=== PATIENT | female | born 1935 | race Two or more races ===

== ENCOUNTER 2018-01-28 21:38 | Inpatient (IN) | payer MEDICARE, MEDICAID ==
[2018-01-28 22:01] LABS: % BASOPHILS 0.6 % (0.0-2.0); % EOSINOPHILS 1.2 % (0.0-5.0); % LYMPHOCYTES 21.3 % (20.0-50.0); % MONOCYTES 7.5 % (2.0-10.0); % NEUTROPHILS 69.4 % (40.0-80.0); EOSINOPHILE ABSOLUTE 0.1 Th/cmm (0.1-0.4); MEAN CELL VOLUME 88.1 fl (81-100); MEAN CORPUSCULAR HEMOGLOBIN 29.3 pg (27.0-31.0); MEAN CORPUSCULAR HGB CONC 33.3 pg (28.0-36.0); MEAN PLATELET VOLUME 6.6 fl; MONOCYTE ABSOLUTE 0.4 Th/cmm (0.3-1.0); NEUTROPHILE ABSOLUTE 3.3 Th/cmm (1.8-8.0); PLATELET COUNT 275 Th/cmm (150-400); RED BLOOD COUNT 2.38 Mil/cmm (3.80-5.20); RED CELL DISTRIBUTION WIDTH 15.1 % (11.5-20.0); WHITE BLOOD COUNT 4.8 Th/cmm (4.8-10.8)
--- NOTE | 2018-01-28 22:07 | ED Physician Chart ---
ED Chief Complaint/HPI - Patient Information Date Seen:: 01/28/18 Time Seen:: 21:55 Chief Complaint:: BLOOD IN THE STOOL History of Present Illness:: THIS IS AN 82 YO FEMALE SENT FROM A [facility] FOR AN EVALUATION OF ABDOMINAL PAIN AND BLOOD IN THE STOOL. SHE DENIES NAUSEA AND VOMITING. SHE DENIES CONSTIPATION AND DIARRHEA. SHE STATES THE PAIN IS DIFFUSE ABOUT 3/10. SHE HAS A HISTORY OF HEMORRIODS, DIVERTICULOSIS AND ANEMIA. Allergies:: Allergies Allergy/AdvReac Type Severity Reaction Status Date / Time Penicillins [PCN] Allergy Verified 01/28/18 21:48 Vitals:: Vital Signs - 8 hr 01/28/18 21:40 Temp 98.1 F HR 85 RR 18 BP 130/62 O2 Sat % 95 Historian:: Medical Records Review:: Nurse's Note Reviewed, Old Chart Reviewed, Transfer documents Reviewed ED Review of Systems - Review of Systems General/Constitutional: Other (THIS PATIENT IS CONFUSED AND NOT ABLE TO GIVE AN ACCURATE REVIEW OF SYSTEMS.) ED Past Medical History - Past Medical History Obtainable: Yes Past Medical History: HTN, DM, CAD, CVA/TIA, PUD/GERD, ESRD Family History: None Social History: Non Smoker, No Alcohol, No Drug Use, Care Facility Surgical History: other (BREAST REMOVED, TUMOR REMOVED FROM THE ABDOMEN.) Family Medical History - Family Member Mother History Unknown: Yes Ethnicity: Living Status: Father History Unknown: Yes Ethnicity: Living Status: Hx Family Coronary Artery Disease: Yes Hx Family Hypertension: Yes Hx Family Diabetes: Yes ED Physical Exam - Physical Examination General/Constitutional: Awake, Well-developed, well-nourished, Alert, No distress, GCS 15, Non-toxic appearing, Ambulatory Head: Atraumatic Eyes: Lids, conjuctiva normal, PERRL, EOMI Skin: Nl inspection, No rash, No skin lesions, No ecchymosis, Well hydrated, No lymphadenopathy ENMT: External ears, nose nl, Nasal exam nl, Lips, teeth, gums nl Neck: Nontender, Full ROM w/o pain, No JVD, No nuchal rigidity, No bruit, No mass, No stridor Respiratory: Nl effort/Exclusion, Clear to Auscultation, No Wheeze/Rhonchi/Rales Cardio Vascular: RRR, No murmur, gallop, rubs, NL S1 S2 GI: No tenderness/rebounding/guarding, No organomegaly, No hernia, Normal BS's, Nondistended, No mass/bruits, No McBurney tenderness Other GI comments:: ABDOMEN IS SOFT WITH NO REBOUND. : No CVA tenderness Extremities: No tenderness or effusion, Full ROM, normal strength in all extremities, No edema, Normal digits & nails Neuro/Psych: Alert/oriented, DTR's symmetric, Normal sensory exam, Normal motor strength, Judgement/insight normal, Mood normal, Normal gait, No focal deficits Misc: Normal back, No paraspinal tenderness ED Labs/Radiology/EKG Results - EKG Interpretations EKG Time:: 21:51 Rate & Rhythm: 79 SINUS [place]: LEFT ED Assessment - Assessment General Assessment: ANEMIA ED Septic Shock - . Is Septic Shock (SBP<90, OR Lactate>4 mmol\L) present?: No - <6hrs of presentation: Vital Signs: Vital Signs - 8 hr 01/28/ 21:40 Temp 98.1 F HR 85 RR 18 BP 130/62 O2 Sat % 95 ED Reassessment (Disposition) - Reassessment Reassessment Condition:: Unchanged - Diagnosis Diagnosis:: PSYCHOSIS - Patient Disposition Discharge/Transfer:: Acute Care w/in this hosp Admitting Medical Physician:: Kiran Rivera Admitting Psych Physician:: Juan Rushing Condition at Disposition:: Unchanged ED Discharge Plan - Patient Disposition Admit/Discharge/Transfer: Acute Care w/in this hosp Condition at Disposition: Unchanged
[2018-01-28 22:12] LABS: INR 0.97 (0.5-1.4); PROTHROMBIN TIME (TEST) 10.1 SECONDS (9.5-11.5)
[2018-01-28 22:16] LABS: ALB/GLOB RATIO 1.5 (1.0-1.8); ALBUMIN 3.5 gm/dL (3.7-5.3); ALKALINE PHOSPHATASE 31 U/L (34-104); ANION GAP 11.6 (7.0-16.0); BILIRUBIN,TOTAL 0.1 mg/dL (0.3-1.0); BUN - UREA NITROGEN 25 mg/dL (7-25); CARBON DIOXIDE 20.4 mEq/L (21.0-31.0); CHLORIDE 108 mEq/L (98-107); CREATININE - SERUM 0.9 mg/dL (0.6-1.2); GLUCOSE 147 mg/dL (70-105); SGOT 10 U/L (13-39); SGPT/ALT 11 U/L (7-52); SODIUM SERUM 136 mEq/L (136-145); TOTAL PROTEIN,SERUM 5.8 gm/dL (6.0-8.3)
--- NOTE | 2018-01-28 22:51 | ED Physician Chart ---
ED Chief Complaint/HPI - Patient Information Allergies:: Allergies Allergy/AdvReac Type Severity Reaction Status Date / Time Penicillins [PCN] Allergy Verified 01/28/18 21:48 Vitals:: Vital Signs - 8 hr 01/28/18 21:40 Temp 98.1 F HR 85 RR 18 BP 130/62 O2 Sat % 95 Family Medical History - Family Member Mother History Unknown: Yes Ethnicity: Living Status: Father History Unknown: Yes Ethnicity: Living Status: Hx Family Coronary Artery Disease: Yes Hx Family Hypertension: Yes Hx Family Diabetes: Yes ED Labs/Radiology/EKG Results - Lab Results Results: Laboratory Tests 01/28/18 01/28/18 01/28/18 20:05 21:41 21:41 WBC 4.8 RBC 2.38 L Hgb 7.0 L* Hct 21.0 L MCV 88.1 MCH 29.3 MCHC Differential 33.3 RDW 15.1 Plt Count 275 MPV 6.6 Neutrophils % 69.4 Lymphocytes % 21.3 Monocytes % 7.5 Eosinophils % 1.2 Basophils % 0.6 Sodium 136 Potassium 4.0 Chloride 108 H Carbon Dioxide 20.4 L Anion Gap 11.6 BUN 25 Creatinine 0.9 Est GFR ( Amer) TNP Est GFR (Non-Af Amer) TNP BUN/Creatinine Ratio 27.8 Glucose 147 H Calcium 10.0 Total Bilirubin 0.1 L AST 10 L ALT 11 Alkaline Phosphatase 31 L Troponin I Total Protein 5.8 L Albumin 3.5 L Globulin 2.3 Albumin/Globulin Ratio 1.5 Stool Occult Blood POSITIVE H 01/28/18 21:41 WBC RBC Hgb Hct MCV MCH MCHC Differential RDW Plt Count MPV Neutrophils % Lymphocytes % Monocytes % Eosinophils % Basophils % Sodium Potassium Chloride Carbon Dioxide Anion Gap BUN Creatinine Est GFR ( Amer) Est GFR (Non-Af Amer) BUN/Creatinine Ratio Glucose Calcium Total Bilirubin AST ALT Alkaline Phosphatase Troponin I < 0.01 L Total Protein Albumin Globulin Albumin/Globulin Ratio Stool Occult Blood ED Septic Shock - . Is Septic Shock (SBP<90, OR Lactate>4 mmol\L) present?: No - <6hrs of presentation: Vital Signs: Vital Signs - 8 hr 01/28/18 21:40 Temp 98.1 F HR 85 RR 18 BP 130/62 O2 Sat % 95 ED Reassessment (Disposition) - Patient Disposition Admitting Medical Physician:: Fredi August Condition at Disposition:: Stable ED Discharge Plan - Patient Disposition Admit/Discharge/Transfer: Acute Care w/in this hosp Condition at Disposition: Unchanged
[2018-01-28] MEDS ORDERED: Magnesium Hydroxide (MOM) 30 mL UDC PO PRN (23:31)
[2018-01-29 01:06] VITALS: BP 133/50
[2018-01-29] MEDS: Sodium Chloride 0.9% 1,000 ML IV SCH ×2 (02:07→17:38)
[2018-01-29 08:53] LABS: % EOSINOPHILS 2.6 % (0.0-5.0); % LYMPHOCYTES 26.8 % (20.0-50.0); % NEUTROPHILS 62.6 % (40.0-80.0); EOSINOPHILE ABSOLUTE 0.1 Th/cmm (0.1-0.4); LYMPHOCYTE ABSOLUTE 1.1 Th/cmm (1.5-3.0); MEAN CELL VOLUME 87.2 fl (81-100); MEAN CORPUSCULAR HEMOGLOBIN 28.5 pg (27.0-31.0); MEAN CORPUSCULAR HGB CONC 32.6 pg (28.0-36.0); MEAN PLATELET VOLUME 6.7 fl; MONOCYTE ABSOLUTE 0.3 Th/cmm (0.3-1.0); NEUTROPHILE ABSOLUTE 2.7 Th/cmm (1.8-8.0); PLATELET COUNT 242 Th/cmm (150-400); RED BLOOD COUNT 3.14 Mil/cmm (3.80-5.20); RED CELL DISTRIBUTION WIDTH 15.1 % (11.5-20.0); WHITE BLOOD COUNT 4.2 Th/cmm (4.8-10.8)
[2018-01-29 08:55] LABS: HEMATOCRIT 27.4 % (41.0-60)
[2018-01-29] MEDS ORDERED: Non-Formulary Item 1 EA (Cranberry Fruit Concentrate [Cranberry] 450 MG) PO SCH (09:00)
[2018-01-29] MEDS: Fish Oil 1,000 MG SGL PO SCH ×2 (09:06→16:13)
[2018-01-29] MEDS: Ferrous Sulfate 325 MG TAB PO SCH (09:06)
[2018-01-29] MEDS: Multivitamin Tab PO SCH (09:07)
[2018-01-29 09:09] LABS: ALB/GLOB RATIO 1.6 (1.0-1.8); ALBUMIN 3.4 gm/dL (3.7-5.3); ALKALINE PHOSPHATASE 33 U/L (34-104); ANION GAP 10.4 (7.0-16.0); BILIRUBIN,TOTAL 0.3 mg/dL (0.3-1.0); BUN - UREA NITROGEN 17 mg/dL (7-25); CALCIUM SERUM 9.2 mg/dL (8.6-10.3); CARBON DIOXIDE 19.4 mEq/L (21.0-31.0); CHLORIDE 111 mEq/L (98-107); CREATININE - SERUM 0.7 mg/dL (0.6-1.2); GLUCOSE 181 mg/dL (70-105); POTASSIUM SERUM 3.8 mEq/L (3.5-5.1); SGOT 11 U/L (13-39); SGPT/ALT 11 U/L (7-52); SODIUM SERUM 137 mEq/L (136-145); TOTAL PROTEIN,SERUM 5.6 gm/dL (6.0-8.3)
[2018-01-29] MEDS: NIFEdipine 30 mg ER Tab PO SCH ×2 (09:16→16:14)
--- NOTE | 2018-01-29 09:49 | History and Physical ---
History of Present Illness - HPI Chief Complaint: Rectal bleeding HPI: This is a patient that I follow at a SNF, I received a phone call from SNF stating that patient was having rectal bleeding, order to transfered patient to ER was done. During ER eval was found that patient had a HGB of 7, FOB was positive. 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) GI: Report: Hemorrhoids, Other (Hx of colon Ca.) Psych: Report: Anxiety Musculoskeletal: Report: No Pertinent Hx Rheumatologic: Report: No pertinent Hx Infectious Disease: Report: No Pertinent Hx Renal/: Report: No Pertinent Hx Endocrine: Report: Diabetes Dermatology: Report: No Pertinent Hx Other History: patient is blind - Past Surgical History Past Surgical History: No pertinent Hx Family Medical History - Family Member Mother History Unknown: Yes Ethnicity: Living Status: Father History Unknown: Yes Ethnicity: Living Status: Hx Family Coronary Artery Disease: Yes Hx Family Hypertension: Yes Hx Family Diabetes: Yes Social History Smoke: No Alcohol: None Drugs: None Lives: Custodial Domestic Violence: Negative - Medications Home Medications: Home Medication Medication Instructions Recorded Type Cranberry Fruit Concentrate 450 mg PO BID 12/17/14 History [Cranberry] Atorvastatin Calcium [Lipitor] 20 mg PO HS 12/18/14 History Docusate Sodium [Colace] 100 mg PO BID 05/25/16 History Famotidine [Pepcid] 20 mg PO DAILY 05/25/16 History Ferrous Sulfate [Iron] 325 mg PO DAILY 05/25/16 History Fish Oil [[place] 3] 1,000 mg PO BID 05/25/16 History Lisinopril [Zestril] 20 mg PO BID 05/25/16 History Magnesium Hydroxide [Milk of 30 ml PO DAILY PRN 05/25/16 History Magnesia] Metoprolol Tartrate [Lopressor] 25 mg PO BID 05/25/16 History Nitroglycerin [Nitroglycerin*] 0.4 mg SL Q5MIN PRN MDD 3 TABS 05/25/16 History metFORMIN [Glucophage] 850 mg PO DAILY 05/25/16 History Acetaminophen [Tylenol] 650 mg PO Q4HR PRN #0 tab 06/02/16 Rx Multivitamin [Theragran] 1 tab PO DAILY #0 tab 06/02/16 Rx Nifedipine [Nifedipine ER] 60 mg PO BID 01/28/18 History Potassium Chloride ER [Klor-Con] 10 meq PO DAILY 01/28/18 History - Allergies Allergies/Adverse Reactions: Allergies Allergy/AdvReac Type Severity Reaction Status Date / Time Penicillins [PCN] Allergy Verified 01/28/18 21:48 Review of Systems - Review of Systems Constitutional: Report: No Significant Eyes: Report: Other (Patient is blind) ENT: Report: No Significant Respiratory: Report: No Significant Cardiovascular: Report: No Significant Gastrointestinal: Report: Hematochezia Genitourinary: Report: No Significant Musculoskeletal: Report: No Significant Skin: Report: No Significant Neurological: Report: Weakness Physical Exam - Physical Exam HEENT: Report: Ears Nose Throat within normal limits, Pale Conjunctiva Cardiovascular Systems: Report: Regular, Rate and Rhythm Respiratory: Report: Breath Sounds are within normal limits Abdomen: Report: Non-tender to palpation Back: Report: Inspection of back is within normal limits. Extremities: Report: Non-tender to palpation. Skin: Report: Color of skin is within normal limits, Warm, Dry Neuro/Psych: Report: Mood affect is within normal limits - Lab Results All Lab Results last 24 hours: Laboratory Results - last 24 hr 01/29/18 01/29/18 08:47 08:47 WBC 4.2 L RBC 3.14 L Hgb 9.0 L Hct 27.4 L D MCV 87.2 MCH 28.5 MCHC Differential 32.6 RDW 15.1 Plt Count 242 MPV 6.7 Neutrophils % 62.6 Lymphocytes % 26.8 Monocytes % 7.0 Eosinophils % 2.6 Basophils % 1.0 Sodium 137 Potassium 3.8 Chloride 111 H Carbon Dioxide 19.4 L Anion Gap 10.4 BUN 17 Creatinine 0.7 Est GFR ( Amer) TNP Est GFR (Non-Af Amer) TNP BUN/Creatinine Ratio 24.3 Glucose 181 H Calcium 9.2 Total Bilirubin 0.3 AST 11 L ALT 11 Alkaline Phosphatase 33 L Total Protein 5.6 L Albumin 3.4 L Globulin 2.2 Albumin/Globulin Ratio 1.6 - Assessment Assessment: Patient is awake, alert, calm in no acute distress. Dx: Acute anemia, Rectal bleeding, Blind, HTN, DM Hemorrhoids, S/P CVA, S/P colon Ca. - Plan Plan: Patient is in IV NS, Already transfused, continue with SNF meds. Already seen by GI, Colonoscopy plan for Wednesday.
[2018-01-29 18:31] LABS: A1C % 5.6 % (4.0-6.0)
[2018-01-29] MEDS: Atorvastatin Calcium 10 MG TAB PO SCH (20:40)
--- NOTE | 2018-01-30 00:54 | Consultation ---
DATE OF CONSULTATION: 01/29/2018 CONSULTING PHYSICIAN: Dr. August. REASON FOR CONSULTATION: Rectal bleeding. HISTORY OF PRESENT ILLNESS: The patient is an 82-year-old female with past medical history significant for previous colon cancer and breast cancer, GERD, end-stage renal disease, hypertension, type 2 diabetes, previous stroke and coronary artery disease. She was admitted to the hospital with possible rectal bleeding. The patient notes that she had colon cancer in the s and had surgery at that time to remove the tumor. She does not remember the last time she had a colonoscopy after this, but thinks it was many years ago. She also had breast cancer more recently and had a breast surgery to remove this tumor and reports that she thinks she is in remission. There is report that she had right red blood per rectum yesterday and the day before, although this cannot be confirmed and the nurse today says that there is only a scant amount of possible red blood in her stool today. She does report having some abdominal pain yesterday, but feels well this morning and has no issues. She has been eating okay without vomiting or hematemesis. The patient denies any abnormal weight loss over the past month or two. PAST MEDICAL HISTORY: Hypertension, type 2 diabetes, coronary artery disease, previous stroke, GERD, end-stage renal disease, previous colon cancer, status post resection, breast cancer. PAST SURGICAL HISTORY: Colon cancer resection in the s, breast cancer surgery more recently, ex lap in 2016 for ventral hernia that was strangulated at that time. FAMILY HISTORY: Noncontributory. SOCIAL HISTORY: The patient lives at a nursing facility. Does not smoke or drink. ALLERGIES: She reports an ALLERGY TO PENICILLIN. REVIEW OF SYSTEMS: A 12-point review of systems performed. The patient is negative other than pertinent positives mentioned in the history of present illness. MEDICATIONS: Tylenol, Lipitor, Colace, Pepcid, iron, omega-3, lisinopril, milk of magnesia, metformin, metoprolol, multivitamin, nifedipine. PHYSICAL EXAMINATION: VITAL SIGNS: Blood pressure is 155/84, temperature 98.2, pulse 75 beats per minute, respiratory rate of 18. Oximetry is 97% on room air. GENERAL: The patient is lying flat in bed. She is alert and oriented x 3, no apparent distress. HEENT: Normocephalic, atraumatic appearing head. She has sunglasses on and she is legally blind. Moist mucous membranes. NECK: Supple. No JVD or thyromegaly or lymphadenopathy. CHEST: There is a scar from previous breast surgery. LUNGS: Clear to auscultation. CARDIOVASCULAR: S1, S2 are present, regular rate and rhythm. ABDOMEN: Soft. There is a midline scar. No guarding, no rebound, no distention. EXTREMITIES: No pitting edema is noted. Pulses are not present. SKIN: No obvious jaundice or cyanosis. LABORATORY DATA: White blood cell count is 4.8, hemoglobin is 7.0 on admission, this morning it is 9.0 after 2 units. Platelet count is 242. INR 0.9. Sodium 136, BUN 25, creatinine 0.9, total bilirubin 0.1, AST 10, ALT 11. Troponin is negative. Stool occult blood is positive. No abdominal imaging has been performed. IMPRESSION: This is an 82-year-old female with a history of colon cancer in the , more recently breast cancer, also who has had a strangulated ventral hernia in 2016, status post exploratory laparotomy is admitted to the hospital with possible rectal bleeding and anemia. 1. Rectal bleeding. 2. Anemia. 3. History of colon cancer in 1989, status post resection. 4. Breast cancer status post resection. 5. End-stage renal disease. 6. GERD. 7. Type 2 diabetes. 8. Coronary artery disease. 9. Previous stroke. DISCUSSION: Certainly concerning that the patient is anemic and has a stool occult positive for blood in the setting of previous colon cancer. She cannot recall her last colonoscopy, but thinks this was many years ago. Certainly this patient needs a colonoscopy now to look for any evidence of recurrence from her colon cancer. In addition, we likely will do an upper endoscopy to further investigate the anemia that she is experiencing. The patient did respond to her blood products well, thus I do not suspect an active GI bleed. In the meantime, we will send off a CEA level. RECOMMENDATIONS: 1. We will plan for EGD and colonoscopy on Wednesday in the GI lab. 2. Bowel preparation Wednesday night. 3. Trend hemoglobin and transfuse to keep above 7. 4. Send CEA level now. 5. N.p.o. after midnight, Wednesday. Thank you for allowing us to participate in this patient's care. Please call with any further questions. JOB# [id number]
[2018-01-30 05:52] LABS: % EOSINOPHILS 3.5 % (0.0-5.0); % NEUTROPHILS 56.5 % (40.0-80.0); EOSINOPHILE ABSOLUTE 0.1 Th/cmm (0.1-0.4); HEMATOCRIT 23.5 % (41.0-60); LYMPHOCYTE ABSOLUTE 1.1 Th/cmm (1.5-3.0); MEAN CELL VOLUME 87.7 fl (81-100); MEAN CORPUSCULAR HEMOGLOBIN 29.2 pg (27.0-31.0); MEAN CORPUSCULAR HGB CONC 33.3 pg (28.0-36.0); MEAN PLATELET VOLUME 7.4 fl; MONOCYTE ABSOLUTE 0.4 Th/cmm (0.3-1.0); PLATELET COUNT 230 Th/cmm (150-400); RED BLOOD COUNT 2.67 Mil/cmm (3.80-5.20); RED CELL DISTRIBUTION WIDTH 15.4 % (11.5-20.0); WHITE BLOOD COUNT 3.6 Th/cmm (4.8-10.8)
[2018-01-30 06:06] LABS: HEMOGLOBIN 7.8 gm/dL (12-16)
[2018-01-30 06:07] LABS: ALB/GLOB RATIO 1.6 (1.0-1.8); ALBUMIN 3.1 gm/dL (3.7-5.3); ALKALINE PHOSPHATASE 27 U/L (34-104); ANION GAP 9.8 (7.0-16.0); BILIRUBIN,TOTAL 0.3 mg/dL (0.3-1.0); BUN - UREA NITROGEN 13 mg/dL (7-25); CALCIUM SERUM 8.9 mg/dL (8.6-10.3); CARBON DIOXIDE 21.1 mEq/L (21.0-31.0); CHLORIDE 115 mEq/L (98-107); CREATININE - SERUM 0.7 mg/dL (0.6-1.2); POTASSIUM SERUM 3.9 mEq/L (3.5-5.1); SGOT 9 U/L (13-39); SGPT/ALT 10 U/L (7-52); SODIUM SERUM 142 mEq/L (136-145); TOTAL PROTEIN,SERUM 5.1 gm/dL (6.0-8.3)
[2018-01-30 06:09] LABS: GLUCOSE 106 mg/dL (70-105)
[2018-01-30] MEDS ORDERED: Pantoprazole 80 MG in Sodium Chloride 0.9% 100 ML IV ONE (08:02)
--- NOTE | 2018-01-30 08:25 | GI Progress Note ---
Subjective - Review of Systems Service Date: 01/30/18 Subjective: Had black stool overnight Objective - Results Result Diagrams: 01/30/18 05:05 01/30/18 05:05 Recent Labs: Laboratory Last Values WBC 3.6 Th/cmm (4.8-10.8) L 01/30/18 05:05 RBC 2.67 Mil/cmm (3.80-5.20) L 01/30/18 05:05 Hgb 7.8 gm/dL (12-16) L* 01/30/18 05:05 Hct 23.5 % (41.0-60) L 01/30/18 05:05 MCV 87.7 fl (81-100) 01/30/18 05:05 MCH 29.2 pg (27.0-31.0) 01/30/18 05:05 MCHC Differential 33.3 pg (28.0-36.0) 01/30/18 05:05 RDW 15.4 % (11.5-20.0) 01/30/18 05:05 Plt Count 230 Th/cmm (150-400) 01/30/18 05:05 MPV 7.4 fl 01/30/18 05:05 Neutrophils % 56.5 % (40.0-80.0) 01/30/18 05:05 Lymphocytes % 30.0 % (20.0-50.0) 01/30/18 05:05 Monocytes % 10.0 % (2.0-10.0) 01/30/18 05:05 Eosinophils % 3.5 % (0.0-5.0) 01/30/18 05:05 Basophils % 0.0 % (0.0-2.0) 01/30/18 05:05 PT 10.1 SECONDS (9.5-11.5) 01/28/18 21:41 INR 0.97 (0.5-1.4) 01/28/18 21:41 Sodium 142 mEq/L (136-145) 01/30/18 05:05 Potassium 3.9 mEq/L (3.5-5.1) 01/30/18 05:05 Chloride 115 mEq/L (98-107) H 01/30/18 05:05 Carbon Dioxide 21.1 mEq/L (21.0-31.0) 01/30/18 05:05 Anion Gap 9.8 (7.0-16.0) 01/30/18 05:05 BUN 13 mg/dL (7-25) 01/30/18 05:05 Creatinine 0.7 mg/dL (0.6-1.2) 01/30/18 05:05 Est GFR ( Amer) TNP 01/30/18 05:05 Est GFR (Non-Af Amer) TNP 01/30/18 05:05 BUN/Creatinine Ratio 18.6 01/30/18 05:05 Glucose 106 mg/dL (70-105) H D 01/30/18 05:05 Hemoglobin A1c % 5.6 % (4.0-6.0) 01/29/18 08:47 Calcium 8.9 mg/dL (8.6-10.3) 01/30/18 05:05 Total Bilirubin 0.3 mg/dL (0.3-1.0) 01/30/18 05:05 AST 9 U/L (13-39) L 01/30/18 05:05 ALT 10 U/L (7-52) 01/30/18 05:05 Alkaline Phosphatase 27 U/L (34-104) L 01/30/18 05:05 Troponin I < 0.01 ng/mL (0.01-0.05) L 01/28/18 21:41 Total Protein 5.1 gm/dL (6.0-8.3) L 01/30/18 05:05 Albumin 3.1 gm/dL (3.7-5.3) L 01/30/18 05:05 Globulin 2.0 gm/dL 01/30/18 05:05 Albumin/Globulin Ratio 1.6 (1.0-1.8) 01/30/18 05:05 TSH 0.74 uIU/ml (0.34-5.60) 01/28/18 21:41 Stool Occult Blood POSITIVE (NEGATIVE) H 01/28/18 20:05 Blood Type O POSITIVE 01/28/18 22:25 Antibody Screen NEGATIVE 01/28/18 22:25 Crossmatch See Detail 01/28/18 22:25 - Physical Exam Vitals and I&O: Vital Signs Temp 97 F 01/30/18 06:23 Pulse 85 01/30/18 06:23 Resp 18 01/30/18 06:23 BP 161/69 01/30/18 06:23 Pulse Ox 96 01/30/18 06:23 Intake & Output 01/29/18 01/30/18 01/30/18 18:59 06:59 18:59 Intake Total 1550 Balance 1550 Weight (lbs) 66.678 kg 78.109 kg Intake: Intake, IV Amount 1000 Sodium Chloride 0.9% 1, 1000 000 ml @ 75 mls/hr IV . [id number] [facility] Rx#:[id number] Oral 450 Other 100 Other: # Voids 3 3 # Bowel Movements 3 1 Weight Source Bedscale Bedscale Active Medications: Current Medications Acetaminophen (Tylenol) 650 mg PO Q4HR PRN PRN Reason: Pain Stop: 03/29/18 23:30 Last Admin: 01/29/18 17:48 Dose: 650 mg Atorvastatin Calcium (Lipitor) 20 mg PO HS [facility] Stop: 03/30/18 20:59 Last Admin: 01/29/18 20:40 Dose: 20 mg Docusate Sodium (Colace) 100 mg PO BID [facility] Stop: 03/30/18 08:59 Last Admin: 01/29/18 16:13 Dose: Not Given Famotidine (Pepcid) 20 mg PO DAILY [facility] Stop: 03/30/18 08:59 Last Admin: 01/29/18 09:07 Dose: 20 mg Ferrous Sulfate (Iron) 325 mg PO DAILY [facility] Stop: 03/30/18 08:59 Last Admin: 01/29/18 09:06 Dose: 325 mg Fish Oil ([place] 3) 1,000 mg PO BID [facility] Stop: 03/30/18 08:59 Last Admin: 01/29/18 16:13 Dose: 1,000 mg Sodium Chloride (Nacl 0.9%) 1,000 mls @ 75 mls/hr IV .[id number] [facility] Stop: 03/29/18 23:14 Last Admin: 01/29/18 17:38 Dose: 75 mls/hr Pantoprazole Sodium 80 mg/ (Sodium Chloride) 100 mls @ 200 mls/hr IV X1 ONE Stop: 01/30/18 08:31 Pantoprazole Sodium 80 mg/ (Sodium Chloride) 100 mls @ 10 mls/hr IV Q10H [facility] Stop: 03/31/18 08:14 Lisinopril (Zestril) 20 mg PO BID [facility] Stop: 03/30/18 08:59 Last Admin: 01/29/18 16:14 Dose: Not Given Magnesium Hydroxide (Milk Of Magnesia) 30 ml PO DAILY PRN PRN Reason: Constipation Stop: 03/29/18 23:30 Metformin HCl (Glucophage) 850 mg PO DAILY@0800 [facility] Stop: 03/30/18 07:59 Last Admin: 01/29/18 09:07 Dose: 850 mg Metoprolol Tartrate (Lopressor) 25 mg PO BID [facility] Stop: 03/30/18 08:59 Last Admin: 01/29/18 16:14 Dose: Not Given Multivitamins/Vitamin C (Theragran) 1 tab PO DAILY [facility] Stop: 03/30/18 08:59 Last Admin: 01/29/18 09:07 Dose: 1 tab Nifedipine (Procardia Xl) 60 mg PO BID [facility] Stop: 03/30/18 00:14 Last Admin: 01/29/18 16:14 Dose: 60 mg Nitroglycerin (Nitrostat) 0.4 mg SL Q5MIN PRN PRN Reason: Chest Pain Stop: 03/29/18 23:30 General: Alert, Oriented x3 HEENT: Atraumatic Cardiovascular: Regular rate Lungs: Clear to auscultation Abdomen: Bowel sounds, Soft, no Tender, no Hepatomegaly, no Rebound, no Mass, no Guarding Extremities: no Clubbing Skin: no Rash - Procedures Procedures: Procedures Procedure Code Date BLOOD TRANSFUSION SERVICE 19654 03/01/14 PACKED CELL TRANSFUSION 99.04 03/01/14 SUPPLEMENT ABDOMINAL WALL WITH SYNTH SUB, OPEN APPROACH [id number] 08/24/16 Assessment/Plan - Assessment Assessment: # History of colon ca in 1990s # HIstory of breast ca s/p mastectomy # Anemia # Melena # Hematochezia Pt originally had hematochezia, now with some melena as well. Concern is for colon ca recurrence, peptic ulcer or malignancy, diverticular bleeding, or hemorrhoidal bleeding. We will plan for EGD and colonoscopy tomorrow in the OR. Plan: - EGD and colo tomorrow. Bowel prep tonight - start PPI drip given there was melena overnight - CBC this afternoon, may need another transfusion - clears today - NPO at midnight - transfer to telemetry
[2018-01-30] MEDS: NIFEdipine 30 mg ER Tab PO SCH ×2 (08:59→16:59)
[2018-01-30] MEDS: Fish Oil 1,000 MG SGL PO SCH ×2 (08:59→16:58)
[2018-01-30] MEDS: Ferrous Sulfate 325 MG TAB PO SCH (09:00)
[2018-01-30] MEDS: Multivitamin Tab PO SCH (09:00)
[2018-01-30] MEDS: Sodium Chloride 0.9% 1,000 ML IV SCH (09:14)
[2018-01-30] MEDS: Pantoprazole 80 MG in Sodium Chloride 0.9% 100 ML IV SCH ×2 (10:43→21:22)
--- NOTE | 2018-01-30 10:56 | General Progress Note ---
Subjective - Review of Systems Service Date: 01/30/18 Subjective: I feel ok. Objective - Results Result Diagrams: 01/30/18 05:05 01/30/18 05:05 Recent Labs: Laboratory Last Values WBC 3.6 Th/cmm (4.8-10.8) L 01/30/18 05:05 RBC 2.67 Mil/cmm (3.80-5.20) L 01/30/18 05:05 Hgb 7.8 gm/dL (12-16) L* 01/30/18 05:05 Hct 23.5 % (41.0-60) L 01/30/18 05:05 MCV 87.7 fl (81-100) 01/30/18 05:05 MCH 29.2 pg (27.0-31.0) 01/30/18 05:05 MCHC Differential 33.3 pg (28.0-36.0) 01/30/18 05:05 RDW 15.4 % (11.5-20.0) 01/30/18 05:05 Plt Count 230 Th/cmm (150-400) 01/30/18 05:05 MPV 7.4 fl 01/30/18 05:05 Neutrophils % 56.5 % (40.0-80.0) 01/30/18 05:05 Lymphocytes % 30.0 % (20.0-50.0) 01/30/18 05:05 Monocytes % 10.0 % (2.0-10.0) 01/30/18 05:05 Eosinophils % 3.5 % (0.0-5.0) 01/30/18 05:05 Basophils % 0.0 % (0.0-2.0) 01/30/18 05:05 PT 10.1 SECONDS (9.5-11.5) 01/28/18 21:41 INR 0.97 (0.5-1.4) 01/28/18 21:41 Sodium 142 mEq/L (136-145) 01/30/18 05:05 Potassium 3.9 mEq/L (3.5-5.1) 01/30/18 05:05 Chloride 115 mEq/L (98-107) H 01/30/18 05:05 Carbon Dioxide 21.1 mEq/L (21.0-31.0) 01/30/18 05:05 Anion Gap 9.8 (7.0-16.0) 01/30/18 05:05 BUN 13 mg/dL (7-25) 01/30/18 05:05 Creatinine 0.7 mg/dL (0.6-1.2) 01/30/18 05:05 Est GFR ( Amer) TNP 01/30/18 05:05 Est GFR (Non-Af Amer) TNP 01/30/18 05:05 BUN/Creatinine Ratio 18.6 01/30/18 05:05 Glucose 106 mg/dL (70-105) H D 01/30/18 05:05 Hemoglobin A1c % 5.6 % (4.0-6.0) 01/29/18 08:47 Calcium 8.9 mg/dL (8.6-10.3) 01/30/18 05:05 Total Bilirubin 0.3 mg/dL (0.3-1.0) 01/30/18 05:05 AST 9 U/L (13-39) L 01/30/18 05:05 ALT 10 U/L (7-52) 01/30/18 05:05 Alkaline Phosphatase 27 U/L (34-104) L 01/30/18 05:05 Troponin I < 0.01 ng/mL (0.01-0.05) L 01/28/18 21:41 Total Protein 5.1 gm/dL (6.0-8.3) L 01/30/18 05:05 Albumin 3.1 gm/dL (3.7-5.3) L 01/30/18 05:05 Globulin 2.0 gm/dL 01/30/18 05:05 Albumin/Globulin Ratio 1.6 (1.0-1.8) 01/30/18 05:05 TSH 0.74 uIU/ml (0.34-5.60) 01/28/18 21:41 Stool Occult Blood POSITIVE (NEGATIVE) H 01/28/18 20:05 Blood Type O POSITIVE 01/28/18 22:25 Antibody Screen NEGATIVE 01/28/18 22:25 Crossmatch See Detail 01/28/18 22:25 - Physical Exam Vitals and I&O: Vital Signs Temp 97.3 F 01/30/18 10:00 Pulse 78 01/30/18 10:00 Resp 18 01/30/18 10:00 BP 173/58 01/30/18 10:00 Pulse Ox 97 01/30/18 10:00 Intake & Output 01/29/18 01/30/18 01/30/18 18:59 06:59 18:59 Intake Total 1550 1000 Balance 1550 1000 Weight (lbs) 66.678 kg 78.109 kg Intake: Intake, IV Amount 1000 1000 Sodium Chloride 0.9% 1, 1000 1000 000 ml @ 75 mls/hr IV . [id number] [facility] Rx#:[id number] Oral 450 Other 100 Other: # Voids 3 3 # Bowel Movements 3 1 Weight Source Bedscale Bedscale Active Medications: Current Medications Acetaminophen (Tylenol) 650 mg PO Q4HR PRN PRN Reason: Pain Stop: 03/29/18 23:30 Last Admin: 01/30/18 08:59 Dose: 650 mg Atorvastatin Calcium (Lipitor) 20 mg PO HS ULYSSES Stop: 03/30/18 20:59 Last Admin: 01/29/18 20:40 Dose: 20 mg Bisacodyl (Dulcolax 5 Mg Ec Tab) 10 mg PO X1 ONE Stop: 01/30/18 16:01 Docusate Sodium (Colace) 100 mg PO BID ULYSSES Stop: 03/30/18 08:59 Last Admin: 01/30/18 09:00 Dose: 100 mg Famotidine (Pepcid) 20 mg PO DAILY U[facility]SSES Stop: 03/30/18 08:59 Last Admin: 01/30/18 09:00 Dose: 20 mg Ferrous Sulfate (Iron) 325 mg PO DAILY ULYSSES Stop: 03/30/18 08:59 Last Admin: 01/30/18 09:00 Dose: 325 mg Fish Oil (Woody 3) 1,000 mg PO BID ULYSSES Stop: 03/30/18 08:59 Last Admin: 01/30/18 08:59 Dose: 1,000 mg Sodium Chloride (Nacl 0.9%) 1,000 mls @ 75 mls/hr IV .[id number] ULYSSES Stop: 03/29/18 23:14 Last Admin: 01/30/18 09:14 Dose: 75 mls/hr Pantoprazole Sodium 80 mg/ (Sodium Chloride) 100 mls @ 10 mls/hr IV Q10H ULYSSES Stop: 06/21/18 08:14 Last Admin: 01/30/18 10:43 Dose: 10 mls/hr Lisinopril (Zestril) 20 mg PO BID ULYSSES Stop: 03/30/18 08:59 Last Admin: 01/30/18 08:59 Dose: 20 mg Magnesium Hydroxide (Milk Of Magnesia) 30 ml PO DAILY PRN PRN Reason: Constipation Stop: 03/29/18 23:30 Metformin HCl (Glucophage) 850 mg PO DAILY@0800 U[facility]SSES Stop: 03/30/18 07:59 Last Admin: 01/30/18 09:00 Dose: 850 mg Metoprolol Tartrate (Lopressor) 25 mg PO BID ULYSSES Stop: 03/30/18 08:59 Last Admin: 01/30/18 08:59 Dose: 25 mg Multivitamins/Vitamin C (Theragran) 1 tab PO DAILY ULYSSES Stop: 03/30/18 08:59 Last Admin: 01/30/18 09:00 Dose: 1 tab Nifedipine (Procardia Xl) 60 mg PO BID ULYSSES Stop: 03/30/18 00:14 Last Admin: 01/30/18 08:59 Dose: 60 mg Nitroglycerin (Nitrostat) 0.4 mg SL Q5MIN PRN PRN Reason: Chest Pain Stop: 03/29/18 23:30 Polyethylene Glycol/Electrolytes (Golytely) 4,000 ml PO X1 ONE Stop: 01/30/18 15:01 General: Alert, Oriented x3 HEENT: Atraumatic Cardiovascular: Regular rate Lungs: Clear to auscultation Abdomen: Bowel sounds, Soft, no Tender, no Rebound, no Mass, no Guarding Extremities: Other (No edema), no Clubbing Neurological: Other (Unstable gait) Skin: Other (Warm and dry), no Rash Psych/Mental Status: Mental status NL - Procedures Procedures: Procedures Procedure Code Date BLOOD TRANSFUSION SERVICE 38396 03/01/14 PACKED CELL TRANSFUSION 99.04 03/01/14 SUPPLEMENT ABDOMINAL WALL WITH SYNTH SUB, OPEN APPROACH [id number] 08/24/16 Assessment/Plan - Assessment Assessment: Patient is awake, alert, calm in no acute distress. Last vazquez she had black bowel movement. Dx: Acute anemia, Rectal bleeding, Blind, HTN, DM Hemorrhoids, S /P CVA, S/P colon Ca. - Plan Plan: Patient is in IV NS, Already continue with SNF meds. Tomorrow colonoscopy will be done. Will continue to monitor. .
[2018-01-30 16:17] LABS: % BASOPHILS 0.4 % (0.0-2.0); % EOSINOPHILS 2.6 % (0.0-5.0); % LYMPHOCYTES 24.7 % (20.0-50.0); % MONOCYTES 8.5 % (2.0-10.0); % NEUTROPHILS 63.8 % (40.0-80.0); EOSINOPHILE ABSOLUTE 0.1 Th/cmm (0.1-0.4); HEMATOCRIT 25.3 % (41.0-60); HEMOGLOBIN 8.4 gm/dL (12-16); LYMPHOCYTE ABSOLUTE 1.3 Th/cmm (1.5-3.0); MEAN CELL VOLUME 87.7 fl (81-100); MEAN CORPUSCULAR HEMOGLOBIN 29.2 pg (27.0-31.0); MEAN CORPUSCULAR HGB CONC 33.3 pg (28.0-36.0); MEAN PLATELET VOLUME 6.9 fl; MONOCYTE ABSOLUTE 0.4 Th/cmm (0.3-1.0); NEUTROPHILE ABSOLUTE 3.4 Th/cmm (1.8-8.0); PLATELET COUNT 251 Th/cmm (150-400); RED BLOOD COUNT 2.88 Mil/cmm (3.80-5.20); RED CELL DISTRIBUTION WIDTH 14.9 % (11.5-20.0)
[2018-01-30 16:20] LABS: WHITE BLOOD COUNT 5.2 Th/cmm (4.8-10.8)
[2018-01-30] MEDS: Atorvastatin Calcium 10 MG TAB PO SCH (21:22)
[2018-01-31] MEDS: Sodium Chloride 0.9% 1,000 ML IV SCH ×2 (02:18→19:05)
[2018-01-31 05:10] LABS: % BASOPHILS 0.7 % (0.0-2.0); % EOSINOPHILS 1.8 % (0.0-5.0); EOSINOPHILE ABSOLUTE 0.1 Th/cmm (0.1-0.4); MONOCYTE ABSOLUTE 0.4 Th/cmm (0.3-1.0); PLATELET COUNT 239 Th/cmm (150-400)
[2018-01-31 05:21] LABS: INR 0.95 (0.5-1.4); PROTHROMBIN TIME (TEST) 9.9 SECONDS (9.5-11.5)
[2018-01-31 05:23] LABS: % LYMPHOCYTES 19.4 % (20.0-50.0); % MONOCYTES 7.8 % (2.0-10.0); % NEUTROPHILS 70.3 % (40.0-80.0); HEMATOCRIT 22.6 % (41.0-60); MEAN CELL VOLUME 87.3 fl (81-100); MEAN CORPUSCULAR HEMOGLOBIN 29.1 pg (27.0-31.0); MEAN CORPUSCULAR HGB CONC 33.4 pg (28.0-36.0); MEAN PLATELET VOLUME 7.4 fl; NEUTROPHILE ABSOLUTE 3.5 Th/cmm (1.8-8.0); RED CELL DISTRIBUTION WIDTH 15.1 % (11.5-20.0)
[2018-01-31 05:32] LABS: ALB/GLOB RATIO 1.6 (1.0-1.8); ALBUMIN 3.3 gm/dL (3.7-5.3); ALKALINE PHOSPHATASE 29 U/L (34-104); BILIRUBIN,TOTAL 0.3 mg/dL (0.3-1.0); BUN - UREA NITROGEN 8 mg/dL (7-25); CALCIUM SERUM 8.9 mg/dL (8.6-10.3); CARBON DIOXIDE 20.5 mEq/L (21.0-31.0); CHLORIDE 113 mEq/L (98-107); CREATININE - SERUM 0.7 mg/dL (0.6-1.2); GLUCOSE 109 mg/dL (70-105); POTASSIUM SERUM 3.5 mEq/L (3.5-5.1); SGOT 12 U/L (13-39); SGPT/ALT 10 U/L (7-52); SODIUM SERUM 143 mEq/L (136-145); TOTAL PROTEIN,SERUM 5.4 gm/dL (6.0-8.3)
[2018-01-31 05:57] LABS: HEMOGLOBIN 7.6 gm/dL (12-16)
--- NOTE | 2018-01-31 08:26 | General Progress Note ---
Subjective - Review of Systems Service Date: 01/31/18 Subjective: I am ready for colonoscopy. Objective - Results Result Diagrams: 01/31/18 04:30 01/31/18 04:30 Recent Labs: Laboratory Last Values WBC 5.0 Th/cmm (4.8-10.8) 01/31/18 04:30 RBC 2.60 Mil/cmm (3.80-5.20) L 01/31/18 04:30 Hgb 7.6 gm/dL (12-16) L* 01/31/18 04:30 Hct 22.6 % (41.0-60) L 01/31/18 04:30 MCV 87.3 fl (81-100) 01/31/18 04:30 MCH 29.1 pg (27.0-31.0) 01/31/18 04:30 MCHC Differential 33.4 pg (28.0-36.0) 01/31/18 04:30 RDW 15.1 % (11.5-20.0) 01/31/18 04:30 Plt Count 239 Th/cmm (150-400) 01/31/18 04:30 MPV 7.4 fl 01/31/18 04:30 Neutrophils % 70.3 % (40.0-80.0) 01/31/18 04:30 Lymphocytes % 19.4 % (20.0-50.0) L 01/31/18 04:30 Monocytes % 7.8 % (2.0-10.0) 01/31/18 04:30 Eosinophils % 1.8 % (0.0-5.0) 01/31/18 04:30 Basophils % 0.7 % (0.0-2.0) 01/31/18 04:30 PT 9.9 SECONDS (9.5-11.5) 01/31/18 04:30 INR 0.95 (0.5-1.4) 01/31/18 04:30 Sodium 143 mEq/L (136-145) 01/31/18 04:30 Potassium 3.5 mEq/L (3.5-5.1) 01/31/18 04:30 Chloride 113 mEq/L (98-107) H 01/31/18 04:30 Carbon Dioxide 20.5 mEq/L (21.0-31.0) L 01/31/18 04:30 Anion Gap 13.0 (7.0-16.0) 01/31/18 04:30 BUN 8 mg/dL (7-25) 01/31/18 04:30 Creatinine 0.7 mg/dL (0.6-1.2) 01/31/18 04:30 Est GFR ( Amer) TNP 01/31/18 04:30 Est GFR (Non-Af Amer) TNP 01/31/18 04:30 BUN/Creatinine Ratio 11.4 01/31/18 04:30 Glucose 109 mg/dL (70-105) H 01/31/18 04:30 Hemoglobin A1c % 5.6 % (4.0-6.0) 01/29/18 08:47 Calcium 8.9 mg/dL (8.6-10.3) 01/31/18 04:30 Total Bilirubin 0.3 mg/dL (0.3-1.0) 01/31/18 04:30 AST 12 U/L (13-39) L 01/31/18 04:30 ALT 10 U/L (7-52) 01/31/18 04:30 Alkaline Phosphatase 29 U/L (34-104) L 01/31/18 04:30 Troponin I < 0.01 ng/mL (0.01-0.05) L 01/28/18 21:41 Total Protein 5.4 gm/dL (6.0-8.3) L 01/31/18 04:30 Albumin 3.3 gm/dL (3.7-5.3) L 01/31/18 04:30 Globulin 2.1 gm/dL 01/31/18 04:30 Albumin/Globulin Ratio 1.6 (1.0-1.8) 01/31/18 04:30 TSH 0.74 uIU/ml (0.34-5.60) 01/28/18 21:41 Stool Occult Blood POSITIVE (NEGATIVE) H 01/28/18 20:05 Blood Type O POSITIVE 01/28/18 22:25 Antibody Screen NEGATIVE 01/28/18 22:25 Crossmatch See Detail 01/28/18 22:25 - Physical Exam Vitals and I&O: Vital Signs Temp 97.6 F 01/31/18 04:00 Pulse 73 01/31/18 04:00 Resp 18 01/31/18 04:00 BP 146/56 01/31/18 04:00 Pulse Ox 95 01/31/18 04:00 Intake & Output 01/30/18 01/31/18 01/31/18 18:59 06:59 18:59 Intake Total 3600 1100 Balance 3600 1100 Weight (lbs) 78.018 kg 67.721 kg Intake: Intake, IV Amount 100 1100 Pantoprazole 80 mg In 100 Sodium Chloride 0.9% 100 ml @ 10 mls/hr IV Q10H [facility] Rx#:[id number] Sodium Chloride 0.9% 1, 1000 000 ml @ 75 mls/hr IV . [id number] [facility] Rx#:[id number] Oral 3500 Other: # Voids 3 4 # Bowel Movements 7 7 Weight Source Bedscale Bedscale Active Medications: Current Medications Acetaminophen (Tylenol) 650 mg PO Q4HR PRN PRN Reason: Pain Stop: 03/29/18 23:30 Last Admin: 01/30/18 08:59 Dose: 650 mg Atorvastatin Calcium (Lipitor) 20 mg PO HS ULYSSES Stop: 03/30/18 20:59 Last Admin: 01/30/18 21:22 Dose: 20 mg Docusate Sodium (Colace) 100 mg PO BID ULYSSES Stop: 03/30/18 08:59 Last Admin: 01/30/18 17:00 Dose: Not Given Famotidine (Pepcid) 20 mg PO DAILY ULYSSES Stop: 03/30/18 08:59 Last Admin: 01/30/18 09:00 Dose: 20 mg Ferrous Sulfate (Iron) 325 mg PO DAILY ULYSSES Stop: 03/30/18 08:59 Last Admin: 01/30/18 09:00 Dose: 325 mg Fish Oil (Cleghorn 3) 1,000 mg PO BID ULYSSES Stop: 03/30/18 08:59 Last Admin: 01/30/18 16:58 Dose: 1,000 mg Sodium Chloride (Nacl 0.9%) 1,000 mls @ 75 mls/hr IV .[id number] [facility] Stop: 03/29/18 23:14 Last Admin: 01/31/18 02:18 Dose: 75 mls/hr Pantoprazole Sodium 80 mg/ (Sodium Chloride) 100 mls @ 10 mls/hr IV Q10H [facility]SSES Stop: 03/31/18 08:14 Last Admin: 01/30/18 21:22 Dose: 10 mls/hr Insulin Aspart (Novolog Insulin Sliding Scale) 0 units SUBQ ACHS ULYSSES PRN Reason: Protocol Stop: 04/01/18 07:29 Lisinopril (Zestril) 20 mg PO BID [facility] Stop: 03/30/18 08:59 Last Admin: 01/30/18 16:58 Dose: 20 mg Magnesium Hydroxide (Milk Of Magnesia) 30 ml PO DAILY PRN PRN Reason: Constipation Stop: 03/29/18 23:30 Metformin HCl (Glucophage) 850 mg PO DAILY@0800 [facility] Stop: 03/30/18 07:59 Last Admin: 01/30/18 09:00 Dose: 850 mg Metoprolol Tartrate (Lopressor) 25 mg PO BID [facility] Stop: 03/30/18 08:59 Last Admin: 01/30/18 17:00 Dose: 25 mg Multivitamins/Vitamin C (Theragran) 1 tab PO DAILY [facility] Stop: 03/30/18 08:59 Last Admin: 01/30/18 09:00 Dose: 1 tab Nifedipine (Procardia Xl) 60 mg PO BID [facility] Stop: 03/30/18 00:14 Last Admin: 01/30/18 16:59 Dose: 60 mg Nitroglycerin (Nitrostat) 0.4 mg SL Q5MIN PRN PRN Reason: Chest Pain Stop: 03/29/18 23:30 General: Alert, Oriented x3 HEENT: Atraumatic Cardiovascular: Regular rate Lungs: Clear to auscultation Abdomen: Bowel sounds, Soft, no Tender, no Rebound, no Mass, no Guarding Extremities: Other (No edema), no Clubbing Neurological: Other (Unstable gait) Skin: Other (Warm and dry), no Rash Psych/Mental Status: Mental status NL - Procedures Procedures: Procedures Procedure Code Date BLOOD TRANSFUSION SERVICE 88037 03/01/14 PACKED CELL TRANSFUSION 99.04 03/01/14 SUPPLEMENT ABDOMINAL WALL WITH SYNTH SUB, OPEN APPROACH [id number] 08/24/16 Assessment/Plan - Assessment Assessment: Patient is awake, alert, calm in no acute distress. Hgb wentfrom 8.4 to 7.6 in one day. Dx: Acute anemia, Rectal bleeding, Blind, HTN, DM Hemorrhoids, S/P CVA , S/P colon Ca. - Plan Plan: Patient is in IV NS, Already continue with SNF meds. One unit of RBC is ordered. Today colonoscopy will be done. Will continue to monitor. .
[2018-01-31] MEDS: INSULIN ASPART SLIDING SCALE 100 UNITS/ML UNIT SUBQ SCH ×4 (08:36→20:03)
[2018-01-31] MEDS: NIFEdipine 30 mg ER Tab PO SCH (09:39)
[2018-01-31] MEDS: Ferrous Sulfate 325 MG TAB PO SCH (09:41)
[2018-01-31] MEDS: Fish Oil 1,000 MG SGL PO SCH ×2 (09:41→18:22)
[2018-01-31] MEDS: Multivitamin Tab PO SCH (09:42)
[2018-01-31] MEDS: Pantoprazole 80 MG in Sodium Chloride 0.9% 100 ML IV SCH ×2 (09:48→23:34)
[2018-01-31] MEDS ORDERED: Diatrizoate Meglumine/Diatri 30 mL Sol PO ONE (12:18)
--- NOTE | 2018-01-31 14:25 | Diagnostic Imaging Report ---
Small bowel follow-through HISTORY: Gastrointestinal bleeding The initial luminary animal stunner radiograph demonstrates a nonspecific gas pattern of nondilated bowel. Surgical clips noted in the right upper quadrant consistent with a prior cholecystectomy. Additional surgical clips project over the right abdomen. Surgical changes noted in the lumbar spine associated with a subtle scoliosis and severe degenerative changes. Water-soluble contrast was administered orally. There is free flow contrast from the stomach into the small bowel. There is a normal small bowel caliber and mucosal fold pattern. Normal transit time to the colon. No definite focal abnormalities. No evidence of any extrinsic masses. IMPRESSION: Negative small bowel examination
--- NOTE | 2018-01-31 15:04 | Operative Report ---
DATE OF SURGERY: 01/31/2018 PROCEDURE: 1. Esophagogastroduodenoscopy with biopsy. 2. Colonoscopy. PREOPERATIVE DIAGNOSES: Anemia and GI bleeding in the setting of a history of colon cancer. POSTPROCEDURE DIAGNOSES: 1. Upper endoscopy showing mild reflux esophagitis, status post biopsy; small to moderate size hiatal hernia; mild antral gastritis, status post biopsy and CLOtest; normal duodenum, status post biopsies to rule out celiac disease. 2. Colonoscopy showing intact ileocolonic anastomosis in the transverse colon; diverticulosis; hemorrhoids. INDICATIONS: An 82-year-old female with history of colon cancer resected in the past, now presenting with anemia and GI bleeding. CONSENT: Informed consent was obtained from the patient and her family prior to procedure after detailed explanation of risks, benefits, alternatives including but not limited to infection, bleeding, perforation and . SEDATION: Monitored anesthesia care per Dr. Yanez. DESCRIPTION OF PROCEDURE AND FINDINGS: The procedure took place as an inpatient in the GI suite of [facility]. PROCEDURE: The patient was kept in a left lateral decubitus position. Adequate sedation was achieved with above medications. Initially, an upper endoscopy was performed followed by colonoscopy. An Olympus diagnostic upper endoscope was advanced via the patient's mouth and into the esophagus. The esophagus distally contained some mild reflux esophagitis change. The Z-line was noted at about 35 cm from the gums. Biopsies were obtained from the distal esophagus to rule out short segment Michelle's esophagus. Retroflexion in the stomach revealed a small to moderate sized hiatal hernia. The diaphragmatic hiatus was at about 39 cm from the gums. No GE junction masses or varices were identified on retroflex view in the stomach. Mild antral gastritis was identified. Biopsies were obtained from antrum and mid body submitted for CLOtest as well as histopathology. The pyloric channel and duodenum up to second portion appeared normal. Random biopsies were obtained from second portion to rule out celiac disease. The scope was then withdrawn from the patient. The patient was then repositioned and colonoscopy performed. Rectal examination revealed normal sphincter tone with no rectal masses. An Olympus pediatric colonoscope was advanced via the patient's anus and into the rectum with ease. It was advanced up to the mid transverse colon where an intact ileocolonic anastomosis was identified. The ileum was intubated about 10 cm beyond the anastomosis and appeared normal. The approximate scope withdrawal time from anastomosis to rectum was about 6-7 minutes. There was [id number] left-sided diverticulosis without obvious diverticulitis. Retroflexion in the rectum revealed small internal hemorrhoids. There was no active bleeding or old blood identified in the colon. No stigmata of recent hemorrhage was identified. No polyps or mass lesions were identified. There was no evidence of recurrent cancer. The patient tolerated the procedure well and no complications are anticipated. RECOMMENDATIONS: 1. Follow up biopsy results. 2. Diet as tolerated. 3. Check small bowel series to rule out small bowel lesion. 4. May need outpatient capsule endoscopy to rule out small bowel bleeding. 5. Disposition as per hospitalist. Thank you, Dr. Fredi August for involving us in the care of your patient. If you have any further questions, please call us. JOB# [id number] [email or web address]
[2018-01-31] MEDS: Atorvastatin Calcium 10 MG TAB PO SCH (20:03)
[2018-02-01 05:17] LABS: % BASOPHILS 1.1 % (0.0-2.0); % LYMPHOCYTES 11.8 % (20.0-50.0); % MONOCYTES 7.1 % (2.0-10.0); BASOPHILE ABSOLUTE 0.1 Th/cumm (0-0.2); EOSINOPHILE ABSOLUTE 0.1 Th/cmm (0.1-0.4); HEMOGLOBIN 8.6 gm/dL (12-16); LYMPHOCYTE ABSOLUTE 0.8 Th/cmm (1.5-3.0); MEAN CELL VOLUME 88.6 fl (81-100); MEAN CORPUSCULAR HEMOGLOBIN 29.1 pg (27.0-31.0); MEAN CORPUSCULAR HGB CONC 32.9 pg (28.0-36.0); MONOCYTE ABSOLUTE 0.5 Th/cmm (0.3-1.0); NEUTROPHILE ABSOLUTE 5.4 Th/cmm (1.8-8.0); PLATELET COUNT 246 Th/cmm (150-400); RED BLOOD COUNT 2.94 Mil/cmm (3.80-5.20); RED CELL DISTRIBUTION WIDTH 14.4 % (11.5-20.0); WHITE BLOOD COUNT 6.9 Th/cmm (4.8-10.8)
[2018-02-01 05:31] LABS: ANION GAP 10.1 (7.0-16.0); BUN - UREA NITROGEN 8 mg/dL (7-25); CALCIUM SERUM 8.9 mg/dL (8.6-10.3); CARBON DIOXIDE 22.3 mEq/L (21.0-31.0); CHLORIDE 113 mEq/L (98-107); CREATININE - SERUM 0.7 mg/dL (0.6-1.2); GLUCOSE 115 mg/dL (70-105); POTASSIUM SERUM 3.4 mEq/L (3.5-5.1); SODIUM SERUM 142 mEq/L (136-145)
[2018-02-01] MEDS: INSULIN ASPART SLIDING SCALE 100 UNITS/ML UNIT SUBQ SCH (06:31)
[2018-02-01] MEDS: Multivitamin Tab PO SCH (08:34)
[2018-02-01] MEDS: NIFEdipine 30 mg ER Tab PO SCH (08:34)
[2018-02-01] MEDS: Fish Oil 1,000 MG SGL PO SCH (08:34)
[2018-02-01] MEDS: Ferrous Sulfate 325 MG TAB PO SCH (08:34)
--- NOTE | 2018-02-01 08:53 | Discharge Summary ---
General Discharge Summary - Discharge Summary Date of Admission: 01/28/18 Admitting Diagnosis: Rectal bleeding, Acute anemia Discharge Date: 02/01/18 Discharge Diagnosis: Rectal bleeding, Acute anemia, DM, CHF, CAD, HTN, Hemorroids, Deverticulosis, Hx of colon Ca. Laboratory Findings: Laboratory Results - last 24 hr 01/29/18 01/31/18 01/31/18 08:47 12:14 18:11 WBC RBC Hgb Hct MCV MCH MCHC Differential RDW Plt Count MPV Neutrophils % Lymphocytes % Monocytes % Eosinophils % Basophils % Sodium Potassium Chloride Carbon Dioxide Anion Gap BUN Creatinine Est GFR ( Amer) Est GFR (Non-Af Amer) BUN/Creatinine Ratio Glucose POC Glucose 107 H 153 H Calcium Carcinoembryonic Ag 2.4 01/31/18 02/01/18 02/01/18 19:45 04:50 04:50 WBC 6.9 RBC 2.94 L Hgb 8.6 L Hct 26.0 L MCV 88.6 MCH 29.1 MCHC Differential 32.9 RDW 14.4 Plt Count 246 MPV 7.0 Neutrophils % 78.0 Lymphocytes % 11.8 L Monocytes % 7.1 Eosinophils % 2.0 Basophils % 1.1 Sodium 142 Potassium 3.4 L Chloride 113 H Carbon Dioxide 22.3 Anion Gap 10.1 BUN 8 Creatinine 0.7 Est GFR ( Amer) TNP Est GFR (Non-Af Amer) TNP BUN/Creatinine Ratio 11.4 Glucose 115 H POC Glucose 194 H Calcium 8.9 Carcinoembryonic Ag 02/01/18 06:13 WBC RBC Hgb Hct MCV MCH MCHC Differential RDW Plt Count MPV Neutrophils % Lymphocytes % Monocytes % Eosinophils % Basophils % Sodium Potassium Chloride Carbon Dioxide Anion Gap BUN Creatinine Est GFR ( Amer) Est GFR (Non-Af Amer) BUN/Creatinine Ratio Glucose POC Glucose 110 H Calcium Carcinoembryonic Ag Hospital Course: Patient responded to treatment, Upper and lower endoscopy were done, she improved. Treatment: Patient was in IV NS, Protonix IV, Insulin sliding scale, Continue with SNF meds , 2 units of RBC were transfused. Upper and lower endoscopy were done. Condition at Discharge: Stable Disposition: [facility] (Not SNF) Home Medications: Home Medication Medication Instructions Recorded Type Cranberry Fruit Concentrate 450 mg PO BID 03/09/15 History [Cranberry] Atorvastatin Calcium [Lipitor] 20 mg PO HS 12/18/14 History Docusate Sodium [Colace] 100 mg PO BID 05/25/16 History Famotidine [Pepcid] 20 mg PO DAILY 05/25/16 History Ferrous Sulfate [Iron] 325 mg PO DAILY 05/25/16 History Fish Oil [Hope 3] 1,000 mg PO BID 05/25/16 History Lisinopril [Zestril] 20 mg PO BID 05/25/16 History Magnesium Hydroxide [Milk of 30 ml PO DAILY PRN 05/25/16 History Magnesia] Metoprolol Tartrate [Lopressor] 25 mg PO BID 05/25/16 History Nitroglycerin [Nitroglycerin*] 0.4 mg SL Q5MIN PRN MDD 3 TABS 05/25/16 History metFORMIN [Glucophage] 850 mg PO DAILY 05/25/16 History Acetaminophen [Tylenol] 650 mg PO Q4HR PRN #0 tab 06/02/16 Rx Multivitamin [Theragran] 1 tab PO DAILY #0 tab 06/02/16 Rx Nifedipine [Nifedipine ER] 60 mg PO BID 01/28/18 History Potassium Chloride ER [Klor-Con] 10 meq PO DAILY 01/28/18 History Inpatient Medications: Current Medications Acetaminophen (Tylenol) 650 mg PO Q4HR PRN PRN Reason: Pain Stop: 03/29/18 23:30 Last Admin: 02/01/18 05:02 Dose: 650 mg Atorvastatin Calcium (Lipitor) 20 mg PO HS ULYSSES Stop: 03/30/18 20:59 Last Admin: 01/31/18 20:03 Dose: 20 mg Docusate Sodium (Colace) 100 mg PO BID [facility]SS[facility] Stop: 03/30/18 08:59 Last Admin: 02/01/18 08:34 Dose: 100 mg Famotidine (Pepcid) 20 mg PO DAILY [facility]SS[facility] Stop: 03/30/18 08:59 Last Admin: 02/01/18 08:34 Dose: 20 mg Ferrous Sulfate (Iron) 325 mg PO DAILY U[facility]SS[facility] Stop: 03/30/18 08:59 Last Admin: 02/01/18 08:34 Dose: 325 mg Fish Oil (Hope 3) 1,000 mg PO BID U[facility]SSES Stop: 03/30/18 08:59 Last Admin: 02/01/18 08:34 Dose: 1,000 mg Sodium Chloride (Nacl 0.9%) 1,000 mls @ 75 mls/hr IV .[id number] [facility] Stop: 03/29/18 23:14 Last Admin: 01/31/18 19:05 Dose: 75 mls/hr Pantoprazole Sodium 80 mg/ (Sodium Chloride) 100 mls @ 10 mls/hr IV Q10H [facility] Stop: 03/31/18 08:14 Last Admin: 01/31/18 23:34 Dose: 10 mls/hr Insulin Aspart (Novolog Insulin Sliding Scale) 0 units SUBQ ACHS ULYSSES PRN Reason: Protocol Stop: 04/01/18 07:29 Last Admin: 02/01/18 06:31 Dose: Not Given Lisinopril (Zestril) 20 mg PO BID [facility] Stop: 03/30/18 08:59 Last Admin: 02/01/18 08:36 Dose: 20 mg Magnesium Hydroxide (Milk Of Magnesia) 30 ml PO DAILY PRN PRN Reason: Constipation Stop: 03/29/18 23:30 Metformin HCl (Glucophage) 850 mg PO DAILY@0800 [facility] Stop: 03/30/18 07:59 Last Admin: 02/01/18 08:00 Dose: 850 mg Metoprolol Tartrate (Lopressor) 25 mg PO BID [facility] Stop: 03/30/18 08:59 Last Admin: 02/01/18 08:36 Dose: 25 mg Multivitamins/Vitamin C (Theragran) 1 tab PO DAILY [facility] Stop: 03/30/18 08:59 Last Admin: 02/01/18 08:34 Dose: 1 tab Nifedipine (Procardia Xl) 60 mg PO BID [facility] Stop: 03/30/18 00:14 Last Admin: 02/01/18 08:34 Dose: 60 mg Nitroglycerin (Nitrostat) 0.4 mg SL Q5MIN PRN PRN Reason: Chest Pain Stop: 03/29/18 23:30 Activity: As Tolerated Discharge Diet: 2 Gram Sodium Consults and Follow-Up: Fredi August [Primary Care Provider] - Consulting Speciality: GI
[2018-02-01] MEDS ORDERED: Propofol 10 mg/mL 20mL Vial **SURGERY USE ONLY IV ONE (10:25)
[2018-02-01] MEDS ORDERED: Lidocaine 2% Gel 5 mL TP ONE (10:25)
--- NOTE | 2018-02-01 13:49 | Pathology Report ---
[id number] Collection date: 01/31/2018 Surgeon: Dr. Dusty Cast Specimen Description: 1. Duodenum biopsy 2. Antrum biopsy 3. Esophageal biopsy Gross Description: Part I: Received in formalin are two victoria soft tissue fragments ranging from 0.1 to 0.2 cm in greatest dimension. Totally submitted in one cassette labeled A. Gross Description: Part II: Received in formalin are two victoria soft tissue fragments ranging from 0.1 to 0.2 cm in greatest dimension. Totally submitted in one cassette labeled B. Gross Description: Part III: Received in formalin are two victoria soft tissue fragments each measuring 0.1 cm in greatest dimension. Totally submitted in one cassette labeled C. Microscopic Description: Part I: The histologic sections show duodena mucosa with intact intestinal villi, showing no evidence for villous abnormality. Diagnosis: Part I: No evidence for celiac disease/sprue (duodenal biopsy). Microscopic Description: Part II: The histologic sections show gastric mucosa with mild chronic inflammation present consisting of lymphocytes and plasma cells. The Giemsa stain shows no evidence for Helicobacter pylori. Diagnosis: Part II: 1. Mild chronic gastritis, antrum biopsy. 2. The Giemsa stain is negative for Helicobacter pylori. Microscopic Description: Part III: The histologic sections show benign glandular and squamous mucosa consistent with esophageal-gastric mucosa. There is mild chronic inflammation present consisting of lymphocytes and plasma cells. The PAS stain shows no evidence for fungal organisms. The Alcian blue stain shows no evidence for intestinal metaplasia (negative for Michelle's). Diagnosis: Part III: 1. Mild chronic inflammation consistent with chronic esophago-gastritis (distal esophageal biopsy). 2. There is no evidence for Michelle's esophagus. [facility]# [id number] [facility]
== END 2018-02-01 11:55 | DRG 377 ==
LOC: ER 21:38 → MSI 22:50 → TELE 01-30 08:07
PROVIDERS: ADMIT General Practice; ATTEND General Practice
PROC: 30233N1 Transfusion of Nonautologous Red Blood Cells into Peripheral Vein, Percutaneous Approach (ICD-10-PCS; 2018-01-28)
PROC: 0DB58ZX Excision of Esophagus, Via Natural or Artificial Opening Endoscopic, Diagnostic (ICD-10-PCS; principal; 2018-01-31)
PROC: 0DB68ZX Excision of Stomach, Via Natural or Artificial Opening Endoscopic, Diagnostic (ICD-10-PCS; 2018-01-31)
PROC: 0DJD8ZZ Inspection of Lower Intestinal Tract, Via Natural or Artificial Opening Endoscopic (ICD-10-PCS; 2018-01-31)
PROC: 0DB98ZX Excision of Duodenum, Via Natural or Artificial Opening Endoscopic, Diagnostic (ICD-10-PCS; 2018-01-31)
DX: K62.5 Hemorrhage of anus and rectum (principal); N18.6 End stage renal disease; I13.2 Hypertensive heart and chronic kidney disease with heart failure and with stage 5 chronic kidney disease, or end stage renal disease; E11.22 Type 2 diabetes mellitus with diabetic chronic kidney disease; K21.0 Gastro-esophageal reflux disease with esophagitis; K44.9 Diaphragmatic hernia without obstruction or gangrene; K29.70 Gastritis, unspecified, without bleeding; K57.30 Diverticulosis of large intestine without perforation or abscess without bleeding; I50.9 Heart failure, unspecified; K64.8 Other hemorrhoids; D64.9 Anemia, unspecified; F41.9 Anxiety disorder, unspecified; I25.10 Atherosclerotic heart disease of native coronary artery without angina pectoris; H54.7 Unspecified visual loss; Z85.038 Personal history of other malignant neoplasm of large intestine; Z86.73 Personal history of transient ischemic attack (TIA), and cerebral infarction without residual deficits; Z90.10 Acquired absence of unspecified breast and nipple; Z88.0 Allergy status to penicillin; Z82.49 Family history of ischemic heart disease and other diseases of the circulatory system; Z83.3 Family history of diabetes mellitus; Z90.49 Acquired absence of other specified parts of digestive tract
CPT/HCPCS: 36415-UA; 74250-TC; 80048-TC; 80053-TC; 82270-TC; 82378-90; 82948-90; 83036-90; 84443-TC; 84484-TC; 85025-TC; 85610-TC; 86850-TC; 86900-TC; 86901-TC; 86922-TC; 87338-TC; 93005; C9113; J1815; J2704; J7030; J7040; P9016; Z7610

== ENCOUNTER 2018-10-10 18:40 | Inpatient (IN) | payer MEDICARE, MEDICAID ==
[2018-10-10] MEDS ORDERED: Sodium Chloride 0.9% 1,000 ML IV ONE (21:06)
--- NOTE | 2018-10-10 21:12 | ED Physician Chart ---
ED Chief Complaint/HPI - Patient Information Date Seen:: 10/10/18 Time Seen:: 21:00 Chief Complaint:: cough fever History of Present Illness:: location: general quality: cough, fever severity: moderate duration; 2 weeks context: SNF pt reports cold symptoms for few days then cough for about 2 weeks. also reports fever. says she feels sick overall. no vomiting, no diarrhea, no rash. no seizure, no syncope. no chest pain or shortness of breath. Dr. Navarro decided to send pt to ER for further evaluation clinical suspicion for pneumonia. medics report pt with stable vital signs. mod factor: none assoc s/s: none hx from pt. and EMS Allergies:: Allergies Allergy/AdvReac Type Severity Reaction Status Date / Time Penicillins [PCN] Allergy Verified 01/28/18 21:48 Historian:: Patient, EMS Review:: Nurse's Note Reviewed, EMS run form Reviewed ED Review of Systems - Review of Systems General/Constitutional: Fever, No chills, No weight loss, No weakness, No diaphoresis, No edema, No loss of appetite Skin: No skin lesions, No rash, No bruising Head: No headache, No light-headedness Eyes: No loss of vision, No pain, No diplopia ENT: Nasal drainage, No tinnitus Neck: No neck pain, No thyromegaly, No mass noted Cardio Vascular: No chest pain, No palpitations, No edema Pulmonary: No SOB, Cough, Sputum, No wheezing GI: No nausea, No vomiting, No diarrhea, No pain, No melena, No hematochezia, No constipation, No hematemesis G/U: No dysuria, No frequency, No hematuria Musculoskeletal: No bone or joint pain, No back pain, No muscle pain Endocrine: Polyuria Psychiatric: No prior psych history, No depression, No anxiety, No suicidal ideation Hematopoietic: No bruising, No lymphadenopathy Allergic/Immuno: No urticaria, No angioedema Neurological: No syncope, No focal symptoms, No weakness, No paresthesia, No headache, No seizure, No dizziness, No confusion, No vertigo ED Past Medical History - Past Medical History Past Medical History: HTN, DM, Dyslipidemia Family History: Diabetes Mel[place] Social History: Non Smoker, No Alcohol, No Drug Use, , Care Facility Surgical History: None Psychiatricy History: None Medication: Reviewed Family Medical History - Family Member Mother History Unknown: Yes Ethnicity: Living Status: Father History Unknown: Yes Ethnicity: Living Status: Hx Family Coronary Artery Disease: Yes Hx Family Hypertension: Yes Hx Family Diabetes: Yes ED Physical Exam - Physical Examination General/Constitutional: Awake, Well-developed, well-nourished, Alert, No distress, GCS 15, Non-toxic appearing, Ambulatory Head: Atraumatic Eyes: Lids, conjuctiva normal, PERRL, EOMI Skin: Nl inspection, No skin lesions, Well hydrated ENMT: External ears, nose nl, Nasal exam nl (nasal congestion), Oropharynx nl Neck: Nontender, No nuchal rigidity Respiratory: Nl effort/Exclusion (rales and rhonchi right middle and lower lobes , left side clear - good overall thoracic expansion) Cardio Vascular: RRR, No murmur, gallop, rubs, NL S1 S2 GI: No tenderness/rebounding/guarding, Normal BS's, Nondistended : No CVA tenderness Extremities: No tenderness or effusion, Full ROM, normal strength in all extremities, No edema, Normal digits & nails Neuro/Psych: Alert/oriented, Normal sensory exam, Normal motor strength, Judgement/insight normal, Mood normal, No focal deficits Misc: Normal back, No paraspinal tenderness ED Labs/Radiology/EKG Results - Lab Results Results: Laboratory Tests 10/10/18 10/10/18 10/10/18 20:10 20:10 20:10 WBC 9.9 RBC 4.10 Hgb 12.3 Hct 38.2 L MCV 93.0 MCH 29.9 MCHC Differential 32.2 RDW 12.0 Plt Count 289 MPV 7.5 Neutrophils % 80.7 H Lymphocytes % 9.9 L Monocytes % 8.9 Eosinophils % 0.3 Basophils % 0.2 Sodium 135 L Potassium 3.7 Chloride 103 Carbon Dioxide 21.0 Anion Gap 14.7 BUN 22 Creatinine 1.0 Est GFR ( Amer) TNP Est GFR (Non-Af Amer) TNP BUN/Creatinine Ratio 22.0 Glucose 156 H Whole Bld Lactic Acid 0.94 Calcium 11.3 H Total Bilirubin 0.9 AST 19 ALT 20 Alkaline Phosphatase 34 Total Protein 7.4 Albumin 4.1 Globulin 3.3 Albumin/Globulin Ratio 1.2 Urine Source Urine Color Urine Clarity Urine pH Ur Specific [place] Urine Protein Urine Glucose (UA) Urine Ketones Urine Blood Urine Nitrate Urine Bilirubin Urine Urobilinogen Ur Leukocyte Esterase Urine RBC Urine WBC Ur Epithelial Cells Urine Bacteria 10/10/18 21:33 WBC RBC Hgb Hct MCV MCH MCHC Differential RDW Plt Count MPV Neutrophils % Lymphocytes % Monocytes % Eosinophils % Basophils % Sodium Potassium Chloride Carbon Dioxide Anion Gap BUN Creatinine Est GFR ( Amer) Est GFR (Non-Af Amer) BUN/Creatinine Ratio Glucose Whole Bld Lactic Acid Calcium Total Bilirubin AST ALT Alkaline Phosphatase Total Protein Albumin Globulin Albumin/Globulin Ratio Urine Source CLEAN C Urine Color YELLOW Urine Clarity CLOUDY H Urine pH 5.5 Ur Specific [place] >= 1.030 Urine Protein 100 H Urine Glucose (UA) NEGATIVE Urine Ketones TRACE Urine Blood NEGATIVE Urine Nitrate POSITIVE H Urine Bilirubin SMALL H Urine Urobilinogen 2.0 Ur Leukocyte Esterase TRACE H Urine RBC 0-2 Urine WBC 6-10 H Ur Epithelial Cells FEW Urine Bacteria 4+ H - Radiology Results Results: CXR prominence of right and left side central bronchi subtle patchiness right middle lobe abnormal CXR suspect pneumonia right side ER READ will advise admisssion - EKG Interpretations Comments:: EKG sinus tachycardia 103 LVH with secondary repolarization abnormality 0ld anterior infarct slightly leftward axis no acute ST elevation no acute ST depression pt with no chest pain, pt with cough abnormal EKG ER READ ED Assessment - Assessment General Assessment: pt stable while in ER ED Septic Shock - . Is Septic Shock (SBP<90, OR Lactate>4 mmol\L) present?: No - <6hrs of presentation: Assessment of Heart: RRR EKG Interpretation: NSR Capillary refill evaluation: Capillary refill < 2 secs Skin Exam: Warm, Dry, Good Turgur ED Reassessment (Disposition) - Reassessment Reassessment:: medical decision making pt with stable vital signs on arrival to ER however physical exam is positive for significant right middle and lower lobe rales and rhonchi suspect pneumonia blood cultures are performed pt case discussed with Dr. Navarro who advises order influenza A/B Reassessment Condition:: Improved - Diagnosis Diagnosis:: right sided facility acquired pneumonia and/or viral infection urinary tract infection - Patient Disposition Discharge/Transfer:: Acute Care w/in this hosp Admitted to:: Med/Surg Admitting Medical Physician:: Federico Navarro Condition at Disposition:: Stable, Improved
[2018-10-10 21:17] LABS: % BASOPHILS 0.2 % (0.0-2.0); % EOSINOPHILS 0.3 % (0.0-5.0); % LYMPHOCYTES 9.9 % (20.0-50.0); % MONOCYTES 8.9 % (2.0-10.0); % NEUTROPHILS 80.7 % (40.0-80.0); HEMATOCRIT 38.2 % (41.0-60); HEMOGLOBIN 12.3 gm/dL (12-16); MEAN CORPUSCULAR HEMOGLOBIN 29.9 pg (27.0-31.0); MEAN CORPUSCULAR HGB CONC 32.2 pg (28.0-36.0); MEAN PLATELET VOLUME 7.5 fl; MONOCYTE ABSOLUTE 0.9 Th/cmm (0.3-1.0); PLATELET COUNT 289 Th/cmm (150-400); WHITE BLOOD COUNT 9.9 Th/cmm (4.8-10.8)
[2018-10-10 21:30] LABS: ALB/GLOB RATIO 1.2 (1.0-1.8); ALBUMIN 4.1 gm/dL (3.7-5.3); ALKALINE PHOSPHATASE 34 U/L (34-104); ANION GAP 14.7 (7.0-16.0); BILIRUBIN,TOTAL 0.9 mg/dL (0.3-1.0); BUN - UREA NITROGEN 22 mg/dL (7-25); CALCIUM SERUM 11.3 mg/dL (8.6-10.3); CHLORIDE 103 mEq/L (98-107); GLUCOSE 156 mg/dL (70-105); POTASSIUM SERUM 3.7 mEq/L (3.5-5.1); SGOT 19 U/L (13-39); SGPT/ALT 20 U/L (7-52); SODIUM SERUM 135 mEq/L (136-145); TOTAL PROTEIN,SERUM 7.4 gm/dL (6.0-8.3)
[2018-10-10 21:58] LABS: URINE SOURCE CLEAN C
[2018-10-10 22:00] LABS: URINE BILIRUBIN SMALL (NEGATIVE); URINE BLOOD NEGATIVE (NEGATIVE); URINE COLOR YELLOW; URINE GLUCOSE (UA) NEGATIVE (NEGATIVE); URINE KETONE TRACE mg/dL (NEGATIVE); URINE LEUKOCYTE ESTERASE TRACE (NEGATIVE); URINE MICROSCOPIC INDICATED? YES; URINE NITRATE POSITIVE (NEGATIVE); URINE PH 5.5 (4.6 - 8.0); URINE PROTEIN 100 mg/dL (NEGATIVE)
[2018-10-10 22:01] LABS: URINE CLARITY CLOUDY (CLEAR)
[2018-10-10 22:03] LABS: URINE BACTERIA 4+ /hpf (NONE SEEN); URINE EPITHELIAL CELLS FEW /lpf (FEW); URINE RBC 0-2 /hpf (0-5)
[2018-10-10] MEDS ORDERED: Levofloxacin 500mg/100mL 500 MG/100 ML BAG IV ONE (22:49)
[2018-10-11 00:48] LABS: INF A SCREEN NEG FOR INF A; INF B SCREEN NEG FOR INF B
[2018-10-11] MEDS ORDERED: Levofloxacin 500mg/100mL 500 MG/100 ML BAG IV ONE (01:33)
[2018-10-11 03:48] VITALS: BP 136/66
[2018-10-11] MEDS: cefTRIAXone 1 GM in Sodium Chloride 0.9% 50 ML IV SCH (05:25)
[2018-10-11] MEDS: Azithromycin 500 MG in Sodium Chloride 0.9% 250 ML IV SCH (05:26)
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
[2018-10-11] MEDS ORDERED: Magnesium Hydroxide (MOM) 30 mL UDC PO PRN (11:34)
[2018-10-11] MEDS: Fenofibrate, Micronized 134 mg Cap PO SCH (13:43)
[2018-10-11] MEDS: Potassium Chloride 10 mEq ER Tab PO SCH (13:44)
[2018-10-11] MEDS ORDERED: VTE Chemical Prophylaxis Screen/Admission MC PRN (14:13)
--- NOTE | 2018-10-11 14:21 | History & Physical ---
ADMIT DATE: 10/11/2018 MEDICAL H AND P PATIENT'S IDENTIFICATION: An 82-year-old female. CHIEF COMPLAINT: Persistent cough, congestion and fever for last 2 days. HISTORY OF PRESENT ILLNESS: An 82-year-old resident of [facility] has been followed by myself and my nurse practitioner, brought into Emergency Room from [facility] for evaluation of cough, congestion and sore throat evaluation. The patient was worked up in the Emergency Room, noted to have urinary tract infection along with chest x-ray consistent with right lower lobe infiltrate. The patient is now being admitted to the hospital for further treatment. PAST MEDICAL HISTORY: Remarkable for: 1. Diabetes. 2. Hypertension. 3. Hyperlipidemia. 4. DJD. 5. Coronary artery disease. 6. Legally blindness. MEDICATIONS AT HOME: The patient is taking multiple medications, which includes Colace, Pepcid, fenofibrate, Lipitor, lisinopril, Glucophage, Lopressor, multivitamin, potassium. ALLERGIES: THE PATIENT IS ALLERGIC TO PENICILLIN. SOCIAL HISTORY: She resides at a [facility]. No smoking cigarette, alcohol, or drug use. FAMILY HISTORY: Remarkable for diabetes. REVIEW OF SYSTEMS: The patient has complained of sore throat, cough, congestion, bring up green-yellow sputum. The patient denies any chest pain, no shortness of breath. Has fever and chills. Denies any abdominal pain. Denies any nausea, vomiting, diarrhea. Does have some dysuria, but no hematuria, hematochezia, melena. No seizure or syncopal episode. PHYSICAL EXAMINATION: GENERAL: Alert, awake, lying in the bed. VITAL SIGNS: Temperature 99.3, pulse 115, respiratory rate 19, blood pressure 161/71. HEENT: Normocephalic, atraumatic. Bilateral legally blindness noted. Tongue was pink and coated. Oropharynx is congested. Nasal mucosa congested. NECK: Supple, no JVD, no hepatojugular reflex. No lymphadenopathy, thyromegaly. HEART: Both heart sounds are regular. CHEST AND LUNGS: Equal in expansion with mild expiratory wheezing. ABDOMEN: Soft. No guarding, no rigidity. Liver and spleen palpable. No palpable mass. EXTREMITIES: No edema, no cyanosis. Peripheral pulses are +2. No calf tenderness noted. NEUROLOGIC: Alert, awake, follows commands. Decreased power throughout the upper and lower extremity noted. AVAILABLE DIAGNOSTIC DATA: Performed in the Emergency Room, white count of 9.9, hemoglobin 12.3, platelet count 289. Sodium 135, potassium 3.7, chloride 103, CO2 21.0, anion gap is 14.7, BUN and creatinine is 22 and 1.0, glucose of 156, calcium 11.3. Urinalysis remarkable for nitrite positive, bilirubin small, urobilinogen 2+, leuk esterase trace, wbc's 6-10, 4+ bacteria, cloudy urine. Influenza A and B were negative. Chest x-ray read by Emergency Room MD right lower lobe infiltrate. A chest x-ray read by my interpretation, cardiomegaly, questionable haziness of the right lower lobe area noted. CLINICAL IMPRESSION: 1. Persistent cough, congestion, fever. Influenza A and B negative. The patient has diabetes, immunocompromised, extremely high risk to have sepsis. Considering the patient resides in a [facility] and being immunocompromised, the patient may have a component of right lower lobe pneumonia, needs better visualization of the lung. 2. Diabetes. 3. Hypertension. 4. Hyperlipidemia. 5. Degenerative joint disease. 6. Coronary artery disease. 7. Dementia. 8. Debility. 9. Legally blindness. PLAN: The patient is admitted by me overnight. We will get CT scan of the chest. Sputum Gram stain, C and S will be requested. IV Rocephin and Zithromax will be continued per treatment for community-acquired pneumonia and urinary tract infection as well. The patient is to have appropriate home medicine reconciliation. Diabetes will be managed. Follow up lab will be done. We will have further recommendation once CT chest reveals significant finding. Care plan has been reviewed and discussed with RN and the patient. JOB# [id number]
[2018-10-11] MEDS ORDERED: Probiotic Screen MC PRN (15:34)
[2018-10-11] MEDS: Lactobacillus Rhamnosus GG 15 Billion CFU CAP.SPRINK PO SCH (16:39)
[2018-10-11] MEDS: NIFEdipine 30 mg ER Tab PO SCH (16:42)
[2018-10-11] MEDS ORDERED: Non-Formulary Item 1 EA (Cranberry Fruit Concentrate [Cranberry] 450 MG) PO SCH (17:00)
[2018-10-11] MEDS: INSULIN ASPART SLIDING SCALE 100 UNITS/ML UNIT SUBQ SCH ×2 (17:33→21:53)
[2018-10-11] MEDS: Atorvastatin Calcium 10 MG TAB PO SCH (21:10)
[2018-10-12] MEDS: cefTRIAXone 1 GM in Sodium Chloride 0.9% 50 ML IV SCH (03:21)
[2018-10-12] MEDS: Azithromycin 500 MG in Sodium Chloride 0.9% 250 ML IV SCH (04:14)
[2018-10-12] MEDS: D5-0.45NS 1,000 ML IV SCH (06:28)
[2018-10-12] MEDS: INSULIN ASPART SLIDING SCALE 100 UNITS/ML UNIT SUBQ SCH ×4 (06:29→21:31)
[2018-10-12] MEDS: Potassium Chloride 10 mEq ER Tab PO SCH (08:22)
[2018-10-12] MEDS: Fenofibrate, Micronized 134 mg Cap PO SCH (08:22)
[2018-10-12] MEDS: Multivitamin Tab PO SCH (08:23)
[2018-10-12] MEDS: Lactobacillus Rhamnosus GG 15 Billion CFU CAP.SPRINK PO SCH (08:23)
[2018-10-12] MEDS: NIFEdipine 30 mg ER Tab PO SCH ×2 (08:24→17:07)
[2018-10-12] MEDS: Guaifenesin DM 10 ML UDC PO PRN ×2 (08:34→17:08)
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
[2018-10-12] MEDS ORDERED: Albuterol Nebulizer 2.5mg/3mL HHN PRN (13:36)
--- NOTE | 2018-10-12 13:36 | General Progress Note ---
Subjective - Review of Systems Service Date: 10/12/18 Subjective: Patient seen and examined (covering for DR ROLLINS) chart reviewed patient doing fine still some cough afebrile Objective - Results Result Diagrams: 10/10/18 20:10 10/10/18 20:10 Recent Labs: Laboratory Last Values WBC 9.9 Th/cmm (4.8-10.8) 10/10/18 20:10 RBC 4.10 Mil/cmm (3.80-5.20) 10/10/18 20:10 Hgb 12.3 gm/dL (12-16) 10/10/18 20:10 Hct 38.2 % (41.0-60) L 10/10/18 20:10 MCV 93.0 fl (81-100) 10/10/18 20:10 MCH 29.9 pg (27.0-31.0) 10/10/18 20:10 MCHC Differential 32.2 pg (28.0-36.0) 10/10/18 20:10 RDW 12.0 % (11.5-20.0) 10/10/18 20:10 Plt Count 289 Th/cmm (150-400) 10/10/18 20:10 MPV 7.5 fl 10/10/18 20:10 Neutrophils % 80.7 % (40.0-80.0) H 10/10/18 20:10 Lymphocytes % 9.9 % (20.0-50.0) L 10/10/18 20:10 Monocytes % 8.9 % (2.0-10.0) 10/10/18 20:10 Eosinophils % 0.3 % (0.0-5.0) 10/10/18 20:10 Basophils % 0.2 % (0.0-2.0) 10/10/18 20:10 Sodium 135 mEq/L (136-145) L 10/10/18 20:10 Potassium 3.7 mEq/L (3.5-5.1) 10/10/18 20:10 Chloride 103 mEq/L (98-107) 10/10/18 20:10 Carbon Dioxide 21.0 mEq/L (21.0-31.0) 10/10/18 20:10 Anion Gap 14.7 (7.0-16.0) 10/10/18 20:10 BUN 22 mg/dL (7-25) 10/10/18 20:10 Creatinine 1.0 mg/dL (0.6-1.2) 10/10/18 20:10 Est GFR ( Amer) TNP 10/10/18 20:10 Est GFR (Non-Af Amer) TNP 10/10/18 20:10 BUN/Creatinine Ratio 22.0 10/10/18 20:10 Glucose 156 mg/dL (70-105) H 10/10/18 20:10 POC Glucose 104 MG/DL (70 - 105) 10/12/18 11:25 Whole Bld Lactic Acid 0.94 mmol/L (0.60-1.99) 10/10/18 20:10 Calcium 11.3 mg/dL (8.6-10.3) H 10/10/18 20:10 Total Bilirubin 0.9 mg/dL (0.3-1.0) 10/10/18 20:10 AST 19 U/L (13-39) 10/10/18 20:10 ALT 20 U/L (7-52) 10/10/18 20:10 Alkaline Phosphatase 34 U/L (34-104) 10/10/18 20:10 Total Protein 7.4 gm/dL (6.0-8.3) 10/10/18 20:10 Albumin 4.1 gm/dL (3.7-5.3) 10/10/18 20:10 Globulin 3.3 gm/dL 10/10/18 20:10 Albumin/Globulin Ratio 1.2 (1.0-1.8) 10/10/18 20:10 Urine Source CLEAN C 10/10/18 21:33 Urine Color YELLOW 10/10/18 21:33 Urine Clarity CLOUDY (CLEAR) H 10/10/18 21:33 Urine pH 5.5 (4.6 - 8.0) 10/10/18 21:33 Ur Specific [place] >= 1.030 (1.005-1.030) 10/10/18 21:33 Urine Protein 100 mg/dL (NEGATIVE) H 10/10/18 21:33 Urine Glucose (UA) NEGATIVE mg/dL (NEGATIVE) 10/10/18 21:33 Urine Ketones TRACE mg/dL (NEGATIVE) 10/10/18 21:33 Urine Blood NEGATIVE (NEGATIVE) 10/10/18 21:33 Urine Nitrate POSITIVE (NEGATIVE) H 10/10/18 21:33 Urine Bilirubin SMALL (NEGATIVE) H 10/10/18 21:33 Urine Urobilinogen 2.0 E.U./dL (0.2 - 1.0) 10/10/18 21:33 Ur Leukocyte Esterase TRACE (NEGATIVE) H 10/10/18 21:33 Urine RBC 0-2 /hpf (0-5) 10/10/18 21:33 Urine WBC 6-10 /hpf (0-5) H 10/10/18 21:33 Ur Epithelial Cells FEW /lpf (FEW) 10/10/18 21:33 Urine Bacteria 4+ /hpf (NONE SEEN) H 10/10/18 21:33 Influenza A (Rapid) NEG FOR INF A 10/11/18 00:07 Influenza B (Rapid) NEG FOR INF B 10/11/18 00:07 - Physical Exam Vitals and I&O: Vital Signs Temp 99.7 F 10/12/18 12:00 Pulse 93 10/12/18 12:00 Resp 18 10/12/18 12:00 BP 155/65 10/12/18 12:00 Pulse Ox 94 10/12/18 12:00 Intake & Output 10/11/18 10/12/18 10/12/18 18:59 06:59 18:59 Intake Total 100 Balance 100 Weight (lbs) 67.495 kg 67.495 kg Intake: Oral 100 Other: # Voids 3 1 # Bowel Movements 1 Weight Source Bedscale Bedscale Active Medications: Current Medications Acetaminophen (Tylenol) 650 mg PO Q4H PRN PRN Reason: MILD PAIN Stop: 12/10/18 11:33 Last Admin: 10/11/18 12:31 Dose: 650 mg Acetaminophen (Tylenol Extra Strength) 500 mg PO Q6H PRN PRN Reason: Fever > 101 Stop: 12/10/18 12:06 Atorvastatin Calcium (Lipitor) 20 mg PO HS [facility] [place]; Protocol Stop: 12/10/18 20:59 Last Admin: 10/11/18 21:10 Dose: 20 mg Docusate Sodium (Colace) 100 mg PO BID [facility] [place] Stop: 12/10/18 16:59 Last Admin: 10/12/18 08:22 Dose: 100 mg Famotidine (Pepcid) 20 mg PO DAILY [facility] [place] Stop: 12/10/18 13:59 Last Admin: 10/12/18 08:23 Dose: 20 mg Fenofibrate (Tricor) 134 mg PO DAILY [facility] [place] Stop: 12/10/18 13:59 Last Admin: 10/12/18 08:22 Dose: 134 mg Guaifenesin/Dextromethorphan (Robitussin Dm) 5 ml PO Q6H PRN PRN Reason: Cough Stop: 12/10/18 11:32 Last Admin: 10/12/18 08:34 Dose: 5 ml Heparin Sodium (Porcine) (Heparin) 5,000 units SUBQ Q12HR [facility] [place] Stop: 12/10/18 20:59 Last Admin: 10/12/18 08:24 Dose: 5,000 units Ceftriaxone Sodium 1 gm/ (Sodium Chloride) 50 mls @ 100 mls/hr IV Q24HR [facility] [place] Stop: 12/10/18 02:59 Last Admin: 10/12/18 03:21 Dose: 100 mls/hr Azithromycin 500 mg/ Sodium (Chloride) 250 mls @ 250 mls/hr IV Q24HR [facility] [place] Stop: 12/10/18 03:29 Last Admin: 10/12/18 04:14 Dose: 250 mls/hr Dextrose/Sodium Chloride (D5-0.45ns) 1,000 mls @ 70 mls/hr IV .[id number] [facility] [place] Stop: 12/10/18 03:29 Last Admin: 10/12/18 06:28 Dose: 70 mls/hr Insulin Aspart (Novolog Insulin Sliding Scale) 0 units SUBQ ACHS [facility] [place]; Protocol Stop: 12/10/18 16:29 Last Admin: 10/12/18 11:31 Dose: Not Given Lactobacillus Rhamnosus (Culturelle 15b) 1 each PO DAILY [facility] [place] Stop: 12/10/18 15:59 Last Admin: 10/12/18 08:23 Dose: 1 each Lisinopril (Zestril) 20 mg PO BID [facility] [place] Stop: 12/10/18 16:59 Last Admin: 10/12/18 08:24 Dose: 20 mg Magnesium Hydroxide (Milk Of Magnesia) 30 ml PO DAILY PRN PRN Reason: Constipation Stop: 12/10/18 11:33 Metformin HCl (Glucophage) 850 mg PO 0800 [facility] [place] Stop: 12/10/18 17:59 Last Admin: 10/12/18 08:23 Dose: 850 mg Metoprolol Tartrate (Lopressor) 25 mg PO BID [facility] Stop: 12/10/18 16:59 Last Admin: 10/12/18 08:23 Dose: 25 mg Miscellaneous (Vte Chemical Prophylaxis Screen/ Admission) 1 ea [facility] PRN PRN PRN Reason: PROTOCOL Stop: 12/10/18 14:12 Miscellaneous (Probiotic Screen) 1 ea PRN PRN PRN Reason: PROTOCOL Stop: 12/10/18 15:33 Multivitamins/Vitamin C (Theragran) 1 tab PO DAILY [facility] Stop: 12/11/18 08:59 Last Admin: 10/12/18 08:23 Dose: 1 tab Nifedipine (Procardia Xl) 60 mg PO BID [facility] Stop: 12/10/18 16:59 Last Admin: 10/12/18 08:24 Dose: 60 mg Potassium Chloride (Klor-Con) 10 meq PO DAILY [facility] Stop: 12/10/18 12:59 Last Admin: 10/12/18 08:22 Dose: 10 meq Cardiovascular: Regular rate Lungs: Other (few rales) Abdomen: Soft - Procedures Procedures: Procedures Procedure Code Date BLOOD TRANSFUSION SERVICE 55535 03/01/14 DIAGNOSTIC COLONOSCOPY 84944 01/28/18 EGD BIOPSY SINGLE/MULTIPLE 32391 01/28/18 EXCISION OF DUODENUM, ENDO, DIAGN [id number] 01/28/18 EXCISION OF ESOPHAGUS, ENDO, DIAGN [id number] 01/28/18 EXCISION OF STOMACH, ENDO, DIAGN [id number] 01/28/18 INSPECTION OF LOWER INTESTINAL TRACT, ENDO [id number] 01/28/18 PACKED CELL TRANSFUSION 99.04 03/01/14 SUPPLEMENT ABDOMINAL WALL WITH SYNTH SUB, OPEN APPROACH [id number] 08/24/16 TRANSFUSE NONAUT RED BLOOD CELLS IN PERIPH VEIN, PERC [id number] 01/28/18 Assessment/Plan - Assessment Assessment: Pneumonia DM II HTN CAD Blindness - Plan Plan: Continue Rocephine Continue Zithromax Bronchodilator and oxygen prn Plan of care discussed with nursing staff
[2018-10-12] MEDS: Acetaminophen 500 MG TAB PO PRN (17:06)
--- NOTE | 2018-10-12 20:50 | Consultation ---
Consult Note - Consult Note Service Date: 10/12/18 Referring Physician: Federico Navarro Consult Note: PHYSICIAN Consultation Note: Date of Admission: 10/11/18 Purpose of Consultation: Sepsis pneumonia. Chief Complaint: Patient SARAH JACK was admitted to location Medical[facility]Surgical Unit I with PNEUMONIA. History of Present Illness: 82-year-old female female with a past medical history of diabetes mellitus type 2, hypertension, carotid disease, developed cough for 2 weeks, followed by fever. Patient was sent by her primary care physician Dr. Navarro for further evaluation. On initial evaluation, his temperature was 100.7F it went up to 101.4F. His WBC count was 9900. CT scan of the chest revealed multifocal left lung infiltrate. Rocephin and Zithromax were started. ID consult was called for further antibiotic management. Past Medical History: diabetes mellitus type 2, hypertension, carotid disease Diagnoses TYPE 2 DIABETES MELLITUS WITHOUT COMPLICATIONS (10/11/18) ESSENTIAL (PRIMARY) HYPERTENSION (10/11/18) ATHSCL HEART DISEASE OF [place] CORONARY ARTERY W/O ANG PCTRS (10/11/18) PNEUMONIA, UNSPECIFIED ORGANISM (10/11/18) WEAKNESS (10/11/18) OTHER MALAISE (10/11/18) Allergies Allergy/AdvReac Type Severity Reaction Status Date / Time Penicillins [PCN] Allergy Verified 01/28/18 21:48 Vital Signs Temp 98.4 F 10/12/18 18:00 Pulse 97 10/12/18 17:07 Resp 18 10/12/18 16:29 BP 150/72 10/12/18 17:07 Pulse Ox 95 10/12/18 16:29 Intake & Output 10/12/18 10/12/18 10/13/18 06:59 18:59 06:59 Intake Total 100 700 Balance 100 700 Weight (lbs) 67.495 kg 67.495 kg Intake: Oral 100 700 Other: # Voids 1 5 # Bowel Movements 1 3 Weight Source Bedscale Bedscale Laboratory Results - last 24 hr 10/12/18 10/12/18 10/12/18 06:01 11:25 16:20 POC Glucose 130 H 104 140 H Home Medication Medication Instructions Recorded Type Cranberry Fruit Concentrate 450 mg PO BID 12/17/14 History [Cranberry] Docusate Sodium [Colace] 100 mg PO BID 05/25/16 History Lisinopril [Zestril] 20 mg PO BID 05/25/16 History Magnesium Hydroxide [Milk of 30 ml PO DAILY PRN 05/25/16 History Magnesia] metFORMIN [Glucophage] 850 mg PO DAILY 05/25/16 History Acetaminophen [Tylenol] 650 mg PO Q4HR PRN #0 tab 06/02/16 Rx Multivitamin [Theragran] 1 tab PO DAILY #0 tab 06/02/16 Rx Nifedipine [Nifedipine ER] 60 mg PO BID 01/28/18 History Potassium Chloride ER [Klor-Con] 10 meq PO DAILY 01/28/18 History Atorvastatin Calcium [Lipitor] 20 mg PO HS 10/11/18 History Famotidine [Pepcid] 20 mg PO DAILY 10/11/18 History Fenofibrate,Micronized 134 mg PO DAILY 10/11/18 History [Fenofibrate] Fish Oil [[place] 3] 1,000 mg PO BID 10/11/18 History Metoprolol Tartrate [Lopressor] 25 mg PO BID 10/11/18 History Current Medications Generic Name Dose Route Start Last Admin Trade Name Freq PRN Reason Stop Dose Admin Acetaminophen 650 mg 10/11/18 11:34 10/11/18 12:31 Tylenol PO 12/10/18 11:33 650 mg Q4H PRN Administration MILD PAIN Acetaminophen 500 mg 10/11/18 12:07 10/12/18 17:06 Tylenol Extra Strength PO 12/10/18 12:06 500 mg Q6H PRN Administration Fever > 101 Albuterol Sulfate 2.5 mg 10/12/18 13:36 Albuterol 2.5mg/3ml Neb Ud HHN 12/11/18 13:35 Q4H PRN Congestion Atorvastatin Calcium 20 mg 10/11/18 21:00 10/11/18 21:10 Lipitor PO 12/10/18 20:59 20 mg HS ULYSSES Administration Protocol Docusate Sodium 100 mg 10/11/18 17:00 10/12/18 16:55 Colace PO 12/10/18 16:59 Not Given BID ULYSSES Famotidine 20 mg 10/11/18 14:00 10/12/18 08:23 Pepcid PO 12/10/18 13:59 20 mg DAILY ULYSSES Administration Fenofibrate 134 mg 10/11/18 14:00 10/12/18 08:22 Tricor PO 12/10/18 13:59 134 mg DAILY ULYSSES Administration Guaifenesin/Dextromethorphan 5 ml 10/11/18 11:33 10/12/18 17:08 Robitussin Dm PO 12/10/18 11:32 5 ml Q6H PRN Administration Cough Heparin Sodium (Porcine) 5,000 units 10/11/18 21:00 10/12/18 08:24 Heparin SUBQ 12/10/18 20:59 5,000 units Q12HR ULYSSES Administration Ceftriaxone Sodium 1 gm/ 50 mls @ 100 mls/hr 10/11/18 03:00 10/12/18 03:21 Sodium Chloride IV 12/10/18 02:59 100 mls/hr Q24HR ULYSSES Administration Azithromycin 500 mg/ Sodium 250 mls @ 250 mls/hr 10/11/18 03:30 10/12/18 04: 14 Chloride IV 12/10/18 03:29 250 mls/hr Q24HR ULYSSES Administration Dextrose/Sodium Chloride 1,000 mls @ 70 mls/hr 10/11/18 03:30 10/12/18 06:28 D5-0.45ns IV 12/10/18 03:29 70 mls/hr .[id number] ULYSSES Administration Insulin Aspart 0 units 10/11/18 16:30 10/12/18 16:55 Novolog Insulin Sliding Scale SUBQ 12/10/18 16:29 Not Given ACHS ULYSSES Protocol Lactobacillus Rhamnosus 1 each 10/11/18 16:00 10/12/18 08:23 Culturelle 15b PO 12/10/18 15:59 1 each DAILY ULYSSES Administration Lisinopril 20 mg 10/11/18 17:00 10/12/18 17:07 Zestril PO 12/10/18 16:59 20 mg BID ULYSSES Administration Magnesium Hydroxide 30 ml 10/11/18 11:34 Milk Of Magnesia PO 12/10/18 11:33 DAILY PRN Constipation Metformin HCl 850 mg 10/11/18 18:00 10/12/18 08:23 Glucophage PO 12/10/18 17:59 850 mg 0800 ULYSSES Administration Metoprolol Tartrate 25 mg 10/11/18 17:00 10/12/18 17:07 Lopressor PO 12/10/18 16:59 25 mg BID ULYSSES Administration Miscellaneous 1 ea 10/11/18 14:13 Vte Chemical Prophylaxis Screen/ Admission 12/10/18 14:12 PRN PRN PROTOCOL Miscellaneous 1 ea 10/11/18 15:34 Probiotic Screen 12/10/18 15:33 PRN PRN PROTOCOL Multivitamins/Vitamin C 1 tab 10/12/18 09:00 10/12/18 08:23 Theragran PO 12/11/18 08:59 1 tab DAILY ULYSSES Administration Nifedipine 60 mg 10/11/18 17:00 10/12/18 17:07 Procardia Xl PO 12/10/18 16:59 60 mg BID ULYSSES Administration Potassium Chloride 10 meq 10/11/18 13:00 10/12/18 08:22 Klor-Con PO 12/10/18 12:59 10 meq DAILY ULYSSES Administration Review of Systems: A 12 point ROS was reviewed with the pertinent positive and negatives noted in the HPI. Social History Smoking Status Unknown if ever smoked Drug Use No Alcohol Use No Family history: None Physical Exam: General: Comfortable, not in acute distress. HEENT: Head: Normocephalic, atraumatic. Oral cavity: Moist, pink tongue. Eyes : No pallor. No icterus. Neck: Supple, no JVD. No use of accessory neck muscles. No lymphadenopathy Cardio: S1 and S2 within normal limits. Regular rhythm. Respiratory: Vesicular breath sound. No crackles no wheezing. Abdominal: Soft, nontender, nondistended bowel sounds present. Genital/Urinary: Deferred. Extremities: No cyanosis, no clubbing, no edema. Neurological: Alert, awake, oriented 3. Assessment: 1. Sepsis. Fever. 2. Pneumonia. 3. Diabetes mellitus type 2. 4. Hypertension. Plan: Continue current antibiotic Rocephin and Zithromax. Thank you, Dr. Navarro for involving me taking care of this patient Signed, Jagjit Green M.D.
[2018-10-12] MEDS: Atorvastatin Calcium 10 MG TAB PO SCH (21:01)
[2018-10-13] MEDS: cefTRIAXone 1 GM in Sodium Chloride 0.9% 50 ML IV SCH (02:53)
[2018-10-13] MEDS: Azithromycin 500 MG in Sodium Chloride 0.9% 250 ML IV SCH (02:59)
[2018-10-13 06:31] LABS: % BASOPHILS 0.7 % (0.0-2.0); % EOSINOPHILS 0.8 % (0.0-5.0); % MONOCYTES 11.6 % (2.0-10.0); % NEUTROPHILS 74.9 % (40.0-80.0); HEMOGLOBIN 10.6 gm/dL (12-16); LYMPHOCYTE ABSOLUTE 0.7 Th/cmm (1.5-3.0); MEAN CELL VOLUME 91.9 fl (81-100); MEAN CORPUSCULAR HEMOGLOBIN 31.5 pg (27.0-31.0); MEAN CORPUSCULAR HGB CONC 34.3 pg (28.0-36.0); MEAN PLATELET VOLUME 7.1 fl; MONOCYTE ABSOLUTE 0.7 Th/cmm (0.3-1.0); NEUTROPHILE ABSOLUTE 4.8 Th/cmm (1.8-8.0); PLATELET COUNT 272 Th/cmm (150-400); RED BLOOD COUNT 3.37 Mil/cmm (3.80-5.20); RED CELL DISTRIBUTION WIDTH 11.8 % (11.5-20.0); WHITE BLOOD COUNT 6.2 Th/cmm (4.8-10.8)
[2018-10-13] MEDS: INSULIN ASPART SLIDING SCALE 100 UNITS/ML UNIT SUBQ SCH ×4 (06:40→21:33)
[2018-10-13 06:45] LABS: ANION GAP 13.4 (7.0-16.0); BUN - UREA NITROGEN 5 mg/dL (7-25); CALCIUM SERUM 9.7 mg/dL (8.6-10.3); CARBON DIOXIDE 21.8 mEq/L (21.0-31.0); CHLORIDE 108 mEq/L (98-107); CREATININE - SERUM 0.7 mg/dL (0.6-1.2); GLUCOSE 156 mg/dL (70-105); POTASSIUM SERUM 3.2 mEq/L (3.5-5.1); SODIUM SERUM 140 mEq/L (136-145)
[2018-10-13] MEDS: Potassium Chloride 10 mEq ER Tab PO SCH (09:11)
[2018-10-13] MEDS: Multivitamin Tab PO SCH (09:11)
[2018-10-13] MEDS: Lactobacillus Rhamnosus GG 15 Billion CFU CAP.SPRINK PO SCH (09:11)
[2018-10-13] MEDS: Fenofibrate, Micronized 134 mg Cap PO SCH (09:11)
[2018-10-13] MEDS: NIFEdipine 30 mg ER Tab PO SCH ×2 (09:12→16:33)
[2018-10-13] MEDS ORDERED: Potassium Chloride 20 mEq ER Tab PO ONE (13:00)
[2018-10-13] MEDS: Acetaminophen 500 MG TAB PO PRN (16:33)
[2018-10-13] MEDS: D5-0.45NS 1,000 ML IV SCH (17:45)
--- NOTE | 2018-10-13 20:47 | General Progress Note ---
Subjective - Review of Systems Service Date: 10/13/18 Subjective: Patient seen and examined still frequent productive cough afebrile denied breathing difficulty Objective - Results Result Diagrams: 10/13/18 06:14 10/13/18 06:14 Recent Labs: Laboratory Last Values WBC 6.2 Th/cmm (4.8-10.8) 10/13/18 06:14 RBC 3.37 Mil/cmm (3.80-5.20) L 10/13/18 06:14 Hgb 10.6 gm/dL (12-16) L 10/13/18 06:14 Hct 31.0 % (41.0-60) L 10/13/18 06:14 MCV 91.9 fl (81-100) 10/13/18 06:14 MCH 31.5 pg (27.0-31.0) H 10/13/18 06:14 MCHC Differential 34.3 pg (28.0-36.0) 10/13/18 06:14 RDW 11.8 % (11.5-20.0) 10/13/18 06:14 Plt Count 272 Th/cmm (150-400) 10/13/18 06:14 MPV 7.1 fl 10/13/18 06:14 Neutrophils % 74.9 % (40.0-80.0) 10/13/18 06:14 Lymphocytes % 12.0 % (20.0-50.0) L 10/13/18 06:14 Monocytes % 11.6 % (2.0-10.0) H 10/13/18 06:14 Eosinophils % 0.8 % (0.0-5.0) 10/13/18 06:14 Basophils % 0.7 % (0.0-2.0) 10/13/18 06:14 Sodium 140 mEq/L (136-145) 10/13/18 06:14 Potassium 3.2 mEq/L (3.5-5.1) L 10/13/18 06:14 Chloride 108 mEq/L (98-107) H 10/13/18 06:14 Carbon Dioxide 21.8 mEq/L (21.0-31.0) 10/13/18 06:14 Anion Gap 13.4 (7.0-16.0) 10/13/18 06:14 BUN 5 mg/dL (7-25) L 10/13/18 06:14 Creatinine 0.7 mg/dL (0.6-1.2) 10/13/18 06:14 Est GFR ( Amer) [place] 10/13/18 06:14 Est GFR (Non-Af Amer) [facility] 10/13/18 06:14 BUN/Creatinine Ratio 7.1 10/13/18 06:14 Glucose 156 mg/dL (70-105) H 10/13/18 06:14 POC Glucose 144 MG/DL (70 - 105) H 10/13/18 16:09 Whole Bld Lactic Acid 0.94 mmol/L (0.60-1.99) 10/10/18 20:10 Calcium 9.7 mg/dL (8.6-10.3) 10/13/18 06:14 Total Bilirubin 0.9 mg/dL (0.3-1.0) 10/10/18 20:10 AST 19 U/L (13-39) 10/10/18 20:10 ALT 20 U/L (7-52) 10/10/18 20:10 Alkaline Phosphatase 34 U/L (34-104) 10/10/18 20:10 Total Protein 7.4 gm/dL (6.0-8.3) 10/10/18 20:10 Albumin 4.1 gm/dL (3.7-5.3) 10/10/18 20:10 Globulin 3.3 gm/dL 10/10/18 20:10 Albumin/Globulin Ratio 1.2 (1.0-1.8) 10/10/18 20:10 Urine Source CLEAN C 10/10/18 21:33 Urine Color YELLOW 10/10/18 21:33 Urine Clarity CLOUDY (CLEAR) H 10/10/18 21:33 Urine pH 5.5 (4.6 - 8.0) 10/10/18 21:33 Ur Specific [place] >= 1.030 (1.005-1.030) 10/10/18 21:33 Urine Protein 100 mg/dL (NEGATIVE) H 10/10/18 21:33 Urine Glucose (UA) NEGATIVE mg/dL (NEGATIVE) 10/10/18 21:33 Urine Ketones TRACE mg/dL (NEGATIVE) 10/10/18 21: Urine Blood NEGATIVE (NEGATIVE) 10/10/18 21:33 Urine Nitrate POSITIVE (NEGATIVE) H 10/10/18 21:33 Urine Bilirubin SMALL (NEGATIVE) H 10/10/18 21:33 Urine Urobilinogen 2.0 E.U./dL (0.2 - 1.0) 10/10/18 21:33 Ur Leukocyte Esterase TRACE (NEGATIVE) H 10/10/18 21:33 Urine RBC 0-2 /hpf (0-5) 10/10/18 21:33 Urine WBC 6-10 /hpf (0-5) H 10/10/18 21:33 Ur Epithelial Cells FEW /lpf (FEW) 10/10/18 21:33 Urine Bacteria 4+ /hpf (NONE SEEN) H 10/10/18 21:33 Influenza A (Rapid) NEG FOR INF A 10/11/18 00:07 Influenza B (Rapid) NEG FOR INF B 10/11/18 00:07 - Physical Exam Vitals and I&O: Vital Signs Temp 98.4 F 10/13/18 18:00 Pulse 90 10/13/18 20:20 Resp 18 10/13/18 20:20 BP 159/85 10/13/18 16:34 Pulse Ox 92 10/13/18 20:20 Intake & Output 10/13/18 10/13/18 10/14/18 06:59 18:59 06:59 Intake Total 1100 700 Output Total 1 Balance 1099 700 Weight (lbs) 67.495 kg 67.495 kg Intake: Intake, IV Amount 1000 D5-0.45NS 1,000 ml @ 70 1000 mls/hr IV .[id number] [facility] Rx #:[id number] Oral 100 700 Output: Stool 1 Other: # Voids 2 5 # Bowel Movements 3 Stool Characteristics Soft Weight Source Bedscale Bedscale Active Medications: Current Medications Acetaminophen (Tylenol) 650 mg PO Q4H PRN PRN Reason: MILD PAIN Stop: 12/10/18 11:33 Last Admin: 10/11/18 12:31 Dose: 650 mg Acetaminophen (Tylenol Extra Strength) 500 mg PO Q6H PRN PRN Reason: Fever > 101 Stop: 12/10/18 12:06 Last Admin: 10/13/18 16:33 Dose: 500 mg Albuterol Sulfate (Albuterol 2.5mg/3ml Neb Ud) 2.5 mg HHN Q4H PRN PRN Reason: Congestion Stop: 12/11/18 13:35 Last Admin: 10/13/18 14:13 Dose: 2.5 mg Atorvastatin Calcium (Lipitor) 20 mg PO HS [facility]; Protocol Stop: 12/10/18 20:59 Last Admin: 10/12/18 21:01 Dose: 20 mg Docusate Sodium (Colace) 100 mg PO BID [facility] Stop: 12/10/18 16:59 Last Admin: 10/13/18 16:34 Dose: Not Given Famotidine (Pepcid) 20 mg PO DAILY [facility] Stop: 12/10/18 13:59 Last Admin: 10/13/18 09:12 Dose: 20 mg Fenofibrate (Tricor) 134 mg PO DAILY [facility] Stop: 12/10/18 13:59 Last Admin: 10/13/18 09:11 Dose: 134 mg Guaifenesin/Dextromethorphan (Robitussin Dm) 5 ml PO Q6H PRN PRN Reason: Cough Stop: 12/10/18 11:32 Last Admin: 10/12/18 17:08 Dose: 5 ml Heparin Sodium (Porcine) (Heparin) 5,000 units SUBQ Q12HR [facility] Stop: 12/10/18 20:59 Last Admin: 10/13/18 09:13 Dose: 5,000 units Ceftriaxone Sodium 1 gm/ (Sodium Chloride) 50 mls @ 100 mls/hr IV Q24HR [facility] Stop: 12/10/18 02:59 Last Admin: 10/13/18 02:53 Dose: 100 mls/hr Azithromycin 500 mg/ Sodium (Chloride) 250 mls @ 250 mls/hr IV Q24HR [facility] Stop: 12/10/18 03:29 Last Admin: 10/13/18 02:59 Dose: 250 mls/hr Dextrose/Sodium Chloride (D5-0.45ns) 1,000 mls @ 70 mls/hr IV .[id number] [facility] Stop: 12/10/18 03:29 Last Admin: 10/13/18 17:45 Dose: 70 mls/hr Insulin Aspart (Novolog Insulin Sliding Scale) 0 units SUBQ ACHS [facility]; Protocol Stop: 12/10/18 16:29 Last Admin: 10/13/18 16:34 Dose: Not Given Lactobacillus Rhamnosus (Culturelle 15b) 1 each PO DAILY [facility] Stop: 12/10/18 15:59 Last Admin: 10/13/18 09:11 Dose: 1 each Lisinopril (Zestril) 20 mg PO BID [facility] Stop: 12/10/18 16:59 Last Admin: 10/13/18 16:34 Dose: 20 mg Magnesium Hydroxide (Milk Of Magnesia) 30 ml PO DAILY PRN PRN Reason: Constipation Stop: 12/10/18 11:33 Metformin HCl (Glucophage) 850 mg PO 0800 U[facility]SSES Stop: 12/10/18 17:59 Last Admin: 10/13/18 09:11 Dose: 850 mg Metoprolol Tartrate (Lopressor) 25 mg PO BID [facility] Stop: 12/10/18 16:59 Last Admin: 10/13/18 16:33 Dose: 25 mg Miscellaneous (Vte Chemical Prophylaxis Screen/ Admission) 1 ea PRN PRN PRN Reason: PROTOCOL Stop: 12/10/18 14:12 Miscellaneous (Probiotic Screen) 1 ea PRN PRN PRN Reason: PROTOCOL Stop: 12/10/18 15:33 Multivitamins/Vitamin C (Theragran) 1 tab PO DAILY [facility] Stop: 12/11/18 08:59 Last Admin: 10/13/18 09:11 Dose: 1 tab Nifedipine (Procardia Xl) 60 mg PO BID [facility] Stop: 12/10/18 16:59 Last Admin: 10/13/18 16:33 Dose: 60 mg Potassium Chloride (Klor-Con) 10 meq PO DAILY [facility] Stop: 12/10/18 12:59 Last Admin: 10/13/18 09:11 Dose: 10 meq Temazepam (Restoril) 15 mg PO HS PRN; Protocol PRN Reason: Insomnia Stop: 12/11/18 22:45 Cardiovascular: Regular rate Lungs: Other (few rales) Abdomen: Soft, no Tender - Procedures Procedures: Procedures Procedure Code Date BLOOD TRANSFUSION SERVICE 89886 03/01/14 DIAGNOSTIC COLONOSCOPY 74669 01/28/18 EGD BIOPSY SINGLE/MULTIPLE 08458 01/28/18 EXCISION OF DUODENUM, ENDO, DIAGN [id number] 01/28/18 EXCISION OF ESOPHAGUS, ENDO, DIAGN [id number] 01/28/18 EXCISION OF STOMACH, ENDO, DIAGN [id number] 01/28/18 INSPECTION OF LOWER INTESTINAL TRACT, ENDO [id number] 01/28/18 PACKED CELL TRANSFUSION 99.04 03/01/14 SUPPLEMENT ABDOMINAL WALL WITH SYNTH SUB, OPEN APPROACH [id number] 08/24/16 TRANSFUSE NONAUT RED BLOOD CELLS IN PERIPH VEIN, PERC [id number] 01/28/18 Assessment/Plan - Assessment Assessment: Pneumonia DM II HTN CAD Blindness - Plan Plan: Continue Rocephine Continue Zithromax Bronchodilator and oxygen prn Plan of care discussed with nursing staff
[2018-10-13] MEDS: Atorvastatin Calcium 10 MG TAB PO SCH (21:27)
[2018-10-14] MEDS: cefTRIAXone 1 GM in Sodium Chloride 0.9% 50 ML IV SCH (02:40)
[2018-10-14] MEDS: Azithromycin 500 MG in Sodium Chloride 0.9% 250 ML IV SCH (04:04)
[2018-10-14] MEDS: INSULIN ASPART SLIDING SCALE 100 UNITS/ML UNIT SUBQ SCH ×3 (06:44→17:11)
[2018-10-14] MEDS: Multivitamin Tab PO SCH (09:10)
[2018-10-14] MEDS: Fenofibrate, Micronized 134 mg Cap PO SCH (09:10)
[2018-10-14] MEDS: Potassium Chloride 10 mEq ER Tab PO SCH (09:11)
[2018-10-14] MEDS: NIFEdipine 30 mg ER Tab PO SCH ×2 (09:11→17:07)
[2018-10-14] MEDS: Lactobacillus Rhamnosus GG 15 Billion CFU CAP.SPRINK PO SCH (09:12)
[2018-10-14] MEDS: Guaifenesin DM 10 ML UDC PO PRN ×2 (10:57→17:06)
--- NOTE | 2018-10-15 11:16 | General Progress Note ---
Subjective - Review of Systems Service Date: 10/14/18 Subjective: Late entry: Patient seen and examined feels better denied any complaints Objective - Results Result Diagrams: 10/13/18 06:14 10/13/18 06:14 Recent Labs: Laboratory Last Values WBC 6.2 Th/cmm (4.8-10.8) 10/13/18 06:14 RBC 3.37 Mil/cmm (3.80-5.20) L 10/13/18 06:14 Hgb 10.6 gm/dL (12-16) L 10/13/18 06:14 Hct 31.0 % (41.0-60) L 10/13/18 06:14 MCV 91.9 fl (81-100) 10/13/18 06:14 MCH 31.5 pg (27.0-31.0) H 10/13/18 06:14 MCHC Differential 34.3 pg (28.0-36.0) 10/13/18 06:14 RDW 11.8 % (11.5-20.0) 10/13/18 06:14 Plt Count 272 Th/cmm (150-400) 10/13/18 06:14 MPV 7.1 fl 10/13/18 06:14 Neutrophils % 74.9 % (40.0-80.0) 10/13/18 06:14 Lymphocytes % 12.0 % (20.0-50.0) L 10/13/18 06:14 Monocytes % 11.6 % (2.0-10.0) H 10/13/18 06:14 Eosinophils % 0.8 % (0.0-5.0) 10/13/18 06:14 Basophils % 0.7 % (0.0-2.0) 10/13/18 06:14 Sodium 140 mEq/L (136-145) 10/13/18 06:14 Potassium 3.2 mEq/L (3.5-5.1) L 10/13/18 06:14 Chloride 108 mEq/L (98-107) H 10/13/18 06:14 Carbon Dioxide 21.8 mEq/L (21.0-31.0) 10/13/18 06:14 Anion Gap 13.4 (7.0-16.0) 10/13/18 06:14 BUN 5 mg/dL (7-25) L 10/13/18 06:14 Creatinine 0.7 mg/dL (0.6-1.2) 10/13/18 06:14 Est GFR ( Amer) [place] 10/13/18 06:14 Est GFR (Non-Af Amer) [facility] 10/13/18 06:14 BUN/Creatinine Ratio 7.1 10/13/18 06:14 Glucose 156 mg/dL (70-105) H 10/13/18 06:14 POC Glucose 127 MG/DL (70 - 105) H 10/14/18 12:24 Whole Bld Lactic Acid 0.94 mmol/L (0.60-1.99) 10/10/18 20:10 Calcium 9.7 mg/dL (8.6-10.3) 10/13/18 06:14 Total Bilirubin 0.9 mg/dL (0.3-1.0) 10/10/18 20:10 AST 19 U/L (13-39) 10/10/18 20:10 ALT 20 U/L (7-52) 10/10/18 20:10 Alkaline Phosphatase 34 U/L (34-104) 10/10/18 20:10 Total Protein 7.4 gm/dL (6.0-8.3) 10/10/18 20:10 Albumin 4.1 gm/dL (3.7-5.3) 10/10/18 20:10 Globulin 3.3 gm/dL 10/10/18 20:10 Albumin/Globulin Ratio 1.2 (1.0-1.8) 10/10/18 20:10 Urine Source CLEAN C 10/10/18 21:33 Urine Color YELLOW 10/10/18 21:33 Urine Clarity CLOUDY (CLEAR) H 10/10/18 21:33 Urine pH 5.5 (4.6 - 8.0) 10/10/18 21:33 Ur Specific [place] >= 1.030 (1.005-1.030) 10/10/18 21:33 Urine Protein 100 mg/dL (NEGATIVE) H 10/10/18 21:33 Urine Glucose (UA) NEGATIVE mg/dL (NEGATIVE) 10/10/18 21:33 Urine Ketones TRACE mg/dL (NEGATIVE) 10/10/18 21:33 Urine Blood NEGATIVE (NEGATIVE) 10/10/18 21:33 Urine Nitrate POSITIVE (NEGATIVE) H 10/10/18 21:33 Urine Bilirubin SMALL (NEGATIVE) H 10/10/18 21:33 Urine Urobilinogen 2.0 E.U./dL (0.2 - 1.0) 10/10/18 21:33 Ur Leukocyte Esterase TRACE (NEGATIVE) H 10/10/18 21:33 Urine RBC 0-2 /hpf (0-5) 10/10/18 21:33 Urine WBC 6-10 /hpf (0-5) H 10/10/18 21:33 Ur Epithelial Cells FEW /lpf (FEW) 10/10/18 21:33 Urine Bacteria 4+ /hpf (NONE SEEN) H 10/10/18 21:33 Influenza A (Rapid) NEG FOR INF A 10/11/18 00:07 Influenza B (Rapid) NEG FOR INF B 10/11/18 00:07 - Physical Exam Vitals and I&O: Vital Signs Temp 98.6 F 10/14/18 16:02 Pulse 86 10/14/18 17:08 Resp 18 10/14/18 16:02 BP 138/73 10/14/18 17:08 Pulse Ox 97 10/14/18 16:02 Intake & Output 10/14/18 10/15/18 10/15/18 18:59 06:59 18:59 Intake Total 600 Balance 600 Weight (lbs) 70.76 kg Intake: Oral 600 Other: # Voids 4 # Bowel Movements 3 Weight Source Bedscale Cardiovascular: Regular rate Lungs: Clear to auscultation, Other Abdomen: Soft, no Tender - Procedures Procedures: Procedures Procedure Code Date BLOOD TRANSFUSION SERVICE 37538 03/01/14 DIAGNOSTIC COLONOSCOPY 93740 01/28/18 EGD BIOPSY SINGLE/MULTIPLE 72905 01/28/18 EXCISION OF DUODENUM, ENDO, DIAGN [id number] 01/28/18 EXCISION OF ESOPHAGUS, ENDO, DIAGN [id number] 01/28/18 EXCISION OF STOMACH, ENDO, DIAGN [id number] 01/28/18 INSPECTION OF LOWER INTESTINAL TRACT, ENDO [id number] 01/28/18 PACKED CELL TRANSFUSION 99.04 03/01/14 SUPPLEMENT ABDOMINAL WALL WITH SYNTH SUB, OPEN APPROACH [id number] 08/24/16 TRANSFUSE NONAUT RED BLOOD CELLS IN PERIPH VEIN, PERC [id number] 01/28/18 Assessment/Plan - Assessment Assessment: Pneumonia UTI DM II HTN CAD Blindness - Plan Plan: DC back to [facility] today DW id who agreed with DC to [facility] with continuation of antibiotics DC plan discussed with patient's nurse
== END 2018-10-14 19:20 | DRG 871 ==
LOC: ER 18:40 → MSI 10-11 02:07
PROVIDERS: ADMIT Internal Medicine; ATTEND Internal Medicine
DX: A41.9 Sepsis, unspecified organism (principal); J18.9 Pneumonia, unspecified organism; N39.0 Urinary tract infection, site not specified; E11.9 Type 2 diabetes mellitus without complications; I10 Essential (primary) hypertension; I25.10 Atherosclerotic heart disease of native coronary artery without angina pectoris; E78.5 Hyperlipidemia, unspecified; Y95 Nosocomial condition; M19.90 Unspecified osteoarthritis, unspecified site; D89.9 Disorder involving the immune mechanism, unspecified; H54.8 Legal blindness, as defined in USA; Z79.899 Other long term (current) drug therapy; Z83.3 Family history of diabetes mellitus; Z79.84 Long term (current) use of oral hypoglycemic drugs; Z88.0 Allergy status to penicillin
CPT/HCPCS: 36415-UA; 71045-TC; 71250-TC; 80048-TC; 80053-TC; 81001-TC; 82948-90; 83605; 85025-TC; 87070; 87086-90; 87230-TC; 87804-TC; 93005; 94640; 94760; 96375; J0456; J0696; J1644; J1815; J1956; J7030; J7613; Z7610

== ENCOUNTER 2019-08-31 01:08 | Inpatient (IN) | payer MEDICARE, MEDICAID ==
[2019-09-01 00:13] VITALS: BP 162/82
[2019-09-01] MEDS ORDERED: Maalox 30 mL Cup PO PRN ×2 (00:22→00:33)
[2019-09-01] MEDS ORDERED: Magnesium Hydroxide (MOM) 30 mL UDC PO PRN ×2 (00:22→00:33)
[2019-09-01] MEDS ORDERED: Multivitamin Tab PO SCH (09:00)
[2019-09-01] MEDS ORDERED: NIFEdipine 30 mg ER Tab PO SCH (09:00)
[2019-09-01] MEDS ORDERED: GLUCAGON HCl 1 MG KIT IM PRN (09:06)
[2019-09-01] MEDS: Potassium Chloride 10 mEq ER Tab PO SCH (09:06)
[2019-09-01] MEDS: Aspirin 81mg Chewable Tab PO SCH (09:07)
--- NOTE | 2019-09-01 09:40 | History & Physical ---
ADMIT DATE: 09/01/2019 PATIENT IDENTIFICATION: An 83-year-old female. REQUESTING PHYSICIAN: Dr. Mcgowan. REASON: Medical management. HISTORY OF PRESENT ILLNESS: This is an 83-year-old, a resident of [facility], brought into the Emergency Room at [facility] for evaluation of increasing agitation where the patient was seen and medically cleared and now being admitted to Geropsych Unit under care of Dr. Mcgowan. I have been asked to see this patient at [facility] for some medical management. The patient speaks [place] Island[place] only. wildland fire operations specialist is used. PAST MEDICAL HISTORY: Remarkable for: 1. Diabetes. 2. Hypertension. 3. Hyperlipidemia. 4. Degenerative joint disease. 5. Legally blindness. 6. History of colon cancer. 7. History of breast cancer. 8. Osteoarthritis. MEDICATIONS AT HOME: Takin. Aspirin. 2. Colace. 3. Fenofibrate. 4. Lisinopril. 5. Metformin. 6. Metoprolol. 7. Multivitamin. 8. Nifedipine. 9. Pepcid. 10. Potassium. 11. Tylenol. ALLERGIES: THE PATIENT IS ALLERGIC TO PENICILLIN. SOCIAL HISTORY: She is a resident of [facility]. No history of smoking cigarette, alcohol, or drug use. FAMILY MEDICAL HISTORY: Remarkable for diabetes and hypertension. REVIEW OF SYSTEMS: The patient currently denies any headache, blurred vision, double vision, dysphagia, odynophagia, runny nose, stuffy nose, fever, chills, cough, chest pain, shortness of breath, palpitation, dizziness, nausea, vomiting, diarrhea, dysuria, hematuria, hematochezia, melena. No seizure or syncopal episode. PHYSICAL EXAMINATION: GENERAL: The patient is alert, awake, lying in the bed without any acute distress. VITAL SIGNS: Temperature 98, pulse is 74, respiratory rate 18, blood pressure 136/66. HEENT: Normocephalic, atraumatic. Bilateral legally blindness noted. No oral lesion noted. Tongue is pink and coated. No exudate. Nasal mucosa is noncongested. NECK: Supple, no JVD, no hepatojugular reflex. No lymphadenopathy, thyromegaly, or carotid bruit. HEART: Both heart sounds are regular. No S3, no S4. CHEST AND LUNGS: Equal in expansion. No expiratory wheezing. ABDOMEN: Soft. No guarding, no rigidity. Bowel sounds present. No palpable mass. EXTREMITIES: No edema, cyanosis. No calf tenderness. Peripheral pulses are +1. No diffuse osteoarthritic changes noted. NEUROLOGIC: Alert, awake, follows commands. Decreased power throughout the upper and lower extremity. No gross neuro deficit noted. AVAILABLE DIAGNOSTIC DATA: EKG, normal sinus rhythm with left ventricular hypertrophy, rate of 65, no ST-T changes representing acute ischemia. Chemistry panel remarkable for BUN and creatinine is 25 and 0.9. Hemoglobin 12.6, white count of 3.9, platelet count 266. Urine drug screen was negative. Urinalysis was unremarkable as well. I do not have a chest x-ray report available. CLINICAL IMPRESSION: 1. Psychotic disorder. 2. Diabetes mellitus. 3. Hypertension. 4. Hyperlipidemia. 5. Degenerative joint disease. 6. Psychiatric disorder. 7. Legally blindness. 8. History of colon cancer and breast cancer. 9. Fall risk. 10. Decline in self-care and mobility. PLAN: 1. Psychiatric evaluation and management deferred to psychiatrist. 2. Appropriate home medication reconciliation. 3. Diet, monitor blood sugar. 4. General nursing care. 5. Fall precautions. 6. Nutritional support. 7. Follow lab. 8. We will monitor blood pressure. 9. Care plan reviewed and discussed with staff. JOB# [id number]
[2019-09-01] MEDS: INSULIN LISPRO SLIDING SCALE 100 UNITS/ML UNIT SUBQ SCH ×3 (11:38→20:26)
[2019-09-01] MEDS: Fenofibrate, Micronized 134 mg Cap PO SCH (20:25)
[2019-09-01] MEDS: Atorvastatin Calcium 10 MG TAB PO SCH (20:25)
--- NOTE | 2019-09-02 03:05 | Psychiatric Evaluation ---
DATE OF SERVICE: 09/01/2019 PSYCHIATRIC EVALUATION IDENTIFYING DATA: The patient is an 83-year-old woman, resident of a [facility]. Information obtained by directly interviewing the patient as well as reviewing the admission papers and they are reliable. JUSTIFICATION OF HOSPITALIZATION: The patient is admitted here on a voluntary basis in view of her acute psychosis. CHIEF COMPLAINT: "They are doing things behind my back, they are not caring for me." HISTORY OF PRESENT ILLNESS: This is the second psychiatric hospitalization for this patient who was hospitalized under my care in 2016. The patient is reported to have been getting easily agitated and has been accusing the staff of flirting with other males and no one is listening to her. The patient had been noted to be paranoid even during the previous hospitalization. The patient's sleep is noted to be poor. The patient has been getting easily frustrated and has been trying to find the staff and they are trying to help her out. Sleep and appetite prior to the hospitalization are reported to be poor. The patient is stating that she needed some medication for her pain and for her sleep. PAST PSYCHIATRIC HISTORY: Please refer to the above. MEDICAL HISTORY: Physical examination is requested by Dr. Navarro. SUBSTANCE ABUSE HISTORY: None. PHYSICAL OR SEXUAL ABUSE HISTORY: None. LEGAL PROBLEMS: None at this time. STRENGTH AND ASSETS: The patient is motivated. MENTAL STATUS EXAMINATION: The patient is an 83-year-old, legally blind, superficially cooperative. Mood is noted to be irritable. Affect is constricted. The patient is primarily Zimbabwean speaking and the patient has been spoken through a Zimbabwean-speaking paediatrician. Continues to be very paranoid and has been accusing staff of doing things behind her back over there and the staff rather than helping have been flirting with another male members and she could not figure it out. The patient's short-term memory is noted to be poor. Long-term memory seems to be fair. The patient is alert and awake and she is fully aware that she is in [place]. The patient is getting easily agitated. The patient's behavior is reported to be aggressive towards the staff members when they are trying to help her. DIAGNOSTIC IMPRESSION: AXIS I: Dementia and behavioral change, secondary trait. 1B: Dementia and delusional symptoms associated with it. AXIS II: None. AXIS III: As per Dr. Navarro. IMMEDIATE TREATMENT PLAN: The patient is going to be observed on the inpatient unit. Provided with supportive psychotherapy. The patient is going to be started with a low dose of the Seroquel to help her with the paranoia. The patient is going to be closely monitored. Once stabilized, the patient is going to be discharged to [facility] to be followed up on an outpatient basis. JOB# [id number]
[2019-09-02] MEDS: INSULIN LISPRO SLIDING SCALE 100 UNITS/ML UNIT SUBQ SCH ×4 (06:33→20:53)
[2019-09-02] MEDS: Potassium Chloride 10 mEq ER Tab PO SCH (08:42)
[2019-09-02] MEDS: Multivitamin Tab PO SCH (08:42)
[2019-09-02] MEDS: Aspirin 81mg Chewable Tab PO SCH (08:43)
[2019-09-02] MEDS: NIFEdipine 30 mg ER Tab PO SCH (08:49)
[2019-09-02] MEDS: Fenofibrate, Micronized 134 mg Cap PO SCH (20:44)
[2019-09-02] MEDS: Atorvastatin Calcium 10 MG TAB PO SCH (20:44)
--- NOTE | 2019-09-02 20:44 | Progress Notes ---
DATE: 09/02/2019 SUBJECTIVE: The patient seen and examined. The patient is lying in the bed. The patient speaks Mongolian only. The patient has not brought any clothes. The patient is asking for new clothes. PHYSICAL EXAMINATION: VITAL SIGNS: Temperature 98.3, pulse 80, respiratory rate 18, blood pressure 116/74. HEENT: No facial asymmetry. NECK: Supple, no JVD. HEART: Regular. CHEST AND LUNGS: Equal in expansion, no expiratory wheezing. ABDOMEN: Soft. Bowel sounds present. No palpable mass. EXTREMITIES: No edema. CLINICAL IMPRESSION: 1. Diabetes mellitus. 2. Psychotic disorder. 3. Hypertension. 4. Degenerative joint disease. 5. Hyperlipidemia. 6. Legally blindness. 7. Osteoarthritis. 8. High risk for fall. PLAN: 1. Fall precautions. 2. Diabetes management. 3. General nursing care. 4. Monitor blood pressure. 5. Nutritional support. 6. Psych medication and Psych followup. 7. Care plan reviewed and discussed with staff. JOB# [id number]
--- NOTE | 2019-09-03 04:58 | Progress Notes ---
DATE: 09/02/2019 PSYCHIATRIC PROGRESS NOTE SUBJECTIVE: Staff was spoken to. The patient is interviewed. Mood is noted to be irritable. Affect is constricted. Insight and judgment are noted to be still impaired. Impulse control is noted to be limited. The patient has been having difficult time to cope with the stress. The patient is paranoid. The patient is worrying a lot that something is going on behind her back. The patient is not able to contract for safety. The patient is being closely monitored at this time. ASSESSMENT: The patient is still paranoid and anxious. PLAN: To continue the patient with the supportive therapy. I encouraged the patient to verbalize the concerns rather than to act out. JOB# [id number]
[2019-09-03] MEDS: INSULIN LISPRO SLIDING SCALE 100 UNITS/ML UNIT SUBQ SCH ×4 (06:51→20:27)
[2019-09-03] MEDS: Aspirin 81mg Chewable Tab PO SCH (09:40)
[2019-09-03] MEDS: NIFEdipine 30 mg ER Tab PO SCH (09:41)
[2019-09-03] MEDS: Potassium Chloride 10 mEq ER Tab PO SCH (09:42)
[2019-09-03] MEDS: Multivitamin Tab PO SCH (09:42)
--- NOTE | 2019-09-03 15:45 | Progress Notes ---
DATE: 09/03/2019 MEDICAL PROGRESS NOTE PATIENT'S ID: 83-year-old female. SUBJECTIVE: The patient is seen and examined. The patient is lying in the bed comfortably. Discussed with nursing staff about their concern. The patient's blood pressure lately today is elevated. The patient is currently on antihypertensive medication. The patient currently denies any chest pain, shortness of breath, palpitation, dizziness, or nausea or vomiting. PHYSICAL EXAMINATION: VITAL SIGNS: Temperature 98.6, pulse 74, respiratory rate 18, and blood pressure 170/70. HEENT: Legally blindness noted. NECK: Supple. No JVD. HEART: Regular. CHEST AND LUNGS: Equal in expansion and no expiratory wheezing. ABDOMEN: Soft. Bowel sounds present. No palpable mass. EXTREMITIES: No edema. NEUROLOGIC: Alert, awake, and follows commands. MEDICATION: Admission record was reviewed. AVAILABLE DIAGNOSTIC DATA: Lab is none for my review. CLINICAL IMPRESSION: 1. Psychotic disorder. 2. Diabetes mellitus. 3. Hypertension. 4. Hyperlipidemia. 5. Degenerative joint disease. 6. Legally blindness. 7. Fall risk. 8. Decline in self-care, mobility. 9. History of colon cancer and breast cancer. PLAN: 1. Psych medication. 2. Diabetes management. 3. Monitor blood pressure. 4. Monitor blood sugar. 5. Nutritional support. 6. Fall precautions. 7. General nursing care. 8. Continue current treatment plan. 9. Medication management. 10. Care plan reviewed and discussed with staff. JOB# [id number]
--- NOTE | 2019-09-03 16:25 | Progress Notes ---
DATE: 09/03/2019 SUBJECTIVE: Staff was spoken to. The patient is interviewed. Mood is noted to be irritable. Affect is constricted. The patient has paranoia. Coping skills are noted to be still poor. Insight and judgment are also noted to be limited. The patient is isolative and withdrawn at this time. No side effects to the medications are noted. ASSESSMENT: The patient is still paranoid. PLAN: To continue the patient with the supportive therapy and followup. JOB# [id number]
[2019-09-03] MEDS: Atorvastatin Calcium 10 MG TAB PO SCH (20:37)
[2019-09-03] MEDS: Fenofibrate, Micronized 134 mg Cap PO SCH (20:37)
[2019-09-04] MEDS: INSULIN LISPRO SLIDING SCALE 100 UNITS/ML UNIT SUBQ SCH ×4 (06:41→21:48)
[2019-09-04] MEDS: Aspirin 81mg Chewable Tab PO SCH (09:47)
[2019-09-04] MEDS: NIFEdipine 30 mg ER Tab PO SCH (09:49)
[2019-09-04] MEDS: Multivitamin Tab PO SCH (09:49)
[2019-09-04] MEDS: Potassium Chloride 10 mEq ER Tab PO SCH (09:49)
--- NOTE | 2019-09-04 19:36 | Progress Notes ---
DATE: 09/04/2019 IDENTIFICATION: An 83-year-old female. SUBJECTIVE: The patient seen and examined. The patient is lying in the bed. The patient is sleeping comfortably. The patient's blood pressure has been reported today as elevated on today's exam. PHYSICAL EXAMINATION: VITAL SIGNS: Temperature 98.7, pulse 60, respiratory rate 18, blood pressure 175/74. HEENT: Poor dentition. NECK: Supple, no JVD. HEART: Regular. CHEST AND LUNGS: Equal in expansion, no expiratory wheezing. ABDOMEN: Soft. EXTREMITIES: No edema. NEUROLOGIC: Alert, awake, following commands. CLINICAL IMPRESSION: 1. Hypertension, needs better control of blood pressure medicine. 2. Diabetes. 3. Hyperlipidemia. 4. Degenerative joint disease. 5. Legally blindness. 6. Fall risk. 7. Decline in self-care, mobility. PLAN: Her labs look pretty acceptable with glycohemoglobin being normal. We will adjust antihypertensive medicine. Continue to provide fall precautions, nutritional support, general nursing care along with psych medication and psych followup. Care plan has been discussed with staff. JOB# [id number]
[2019-09-04] MEDS: Atorvastatin Calcium 10 MG TAB PO SCH (21:22)
[2019-09-04] MEDS: Fenofibrate, Micronized 134 mg Cap PO SCH (21:22)
--- NOTE | 2019-09-05 01:20 | Progress Notes ---
DATE: 09/04/2019 PSYCHIATRIC PROGRESS NOTE SUBJECTIVE: Staff was spoken to. The patient is interviewed. Mood is noted to be irritable. Affect is constricted. Insight and judgment are noted to be still impaired. Impulse control is noted to be limited. Coping skills are noted to be limited. The patient is paranoid. The patient has been focusing more on the staff and how they are not treating her right. Sleep is noted to be fair. Appetite is also noted to be improving, but the patient continues to be paranoid. No major side effects to the medications are noted. ASSESSMENT: The patient is still paranoid. PLAN: To continue the patient with the current medications and follow up. JOB# [id number]
[2019-09-05] MEDS: INSULIN LISPRO SLIDING SCALE 100 UNITS/ML UNIT SUBQ SCH ×4 (06:33→20:52)
[2019-09-05] MEDS: Aspirin 81mg Chewable Tab PO SCH (09:44)
[2019-09-05] MEDS: Potassium Chloride 10 mEq ER Tab PO SCH (09:44)
[2019-09-05] MEDS: NIFEdipine 30 mg ER Tab PO SCH (09:45)
[2019-09-05] MEDS: Multivitamin Tab PO SCH (09:46)
--- NOTE | 2019-09-05 11:09 | Progress Notes ---
DATE: 09/05/2019 PATIENT'S IDENTIFICATION: An 83-year-old female. SUBJECTIVE: The patient seen and examined. The patient is lying in the bed. The patient has no new complaint. Blood pressure is fluctuating. The patient's average blood pressure running above 140. OBJECTIVE: HEENT: Remarkable for legally blindness. NECK: Supple, no JVD. HEART: Regular. CHEST AND LUNGS: Equal in expansion, no expiratory wheezing. ABDOMEN: Soft, no guarding, no rigidity. Bowel sounds are present. No palpable mass. EXTREMITIES: No edema, no cyanosis. NEUROLOGIC: Alert, awake, follows command. CLINICAL IMPRESSION: 1. Hypertension, needs better control. 2. Diabetes. 3. Hyperlipidemia. 4. Degenerative joint disease. 5. Psychotic disorder. 6. Fall risk. 7. Legally blindness. PLAN: In the view of her persistently elevated blood pressure, we will add Norvasc 5 mg daily. Continue to provide fall precautions. Monitor blood sugar and blood pressure. General nursing care along with continuation of same treatment plan as prescribed. We will monitor the patient's progress. Care plan reviewed and discussed with staff. JOB# [id number]
[2019-09-05] MEDS: Fenofibrate, Micronized 134 mg Cap PO SCH (20:38)
[2019-09-05] MEDS: Atorvastatin Calcium 10 MG TAB PO SCH (20:38)
[2019-09-06] MEDS: INSULIN LISPRO SLIDING SCALE 100 UNITS/ML UNIT SUBQ SCH ×4 (06:33→20:10)
[2019-09-06] MEDS: Aspirin 81mg Chewable Tab PO SCH (08:25)
[2019-09-06] MEDS: NIFEdipine 30 mg ER Tab PO SCH (08:27)
[2019-09-06] MEDS: Potassium Chloride 10 mEq ER Tab PO SCH (08:27)
[2019-09-06] MEDS: Multivitamin Tab PO SCH (08:27)
--- NOTE | 2019-09-06 11:15 | Progress Notes ---
DATE: 09/05/2019 PSYCHIATRIC PROGRESS NOTE SUBJECTIVE: Staff was spoken to. The patient is interviewed. Mood is noted to be irritable. Affect is constricted. Insight and judgment at this time are noted to be still impaired. Impulse control is noted to be limited. The patient is very paranoid. The patient has been accusing people doing things behind her back and she is very much worried. The patient is legally blind and currently on low dose of the Seroquel and has been able to tolerate the medication. Sleep is noted to be fair. Appetite is also noted to be improving, but the patient continues to be paranoid. Tends to scream and yell and has been focused on other people. ASSESSMENT: The patient is still psychotic and demented. PLAN: To continue the patient with the supportive therapy. I encouraged the patient to verbalize the concerns rather than to act out. JOB# [id number]
--- NOTE | 2019-09-06 20:39 | Progress Notes ---
DATE: 09/06/2019 PSYCHIATRIC PROGRESS NOTE SUBJECTIVE: Staff was spoken to. The patient is interviewed. Mood is noted to be irritable. Affect is constricted. Insight and judgment are noted to be still impaired. Impulse control is noted to be limited. Coping skills are noted to be limited. The patient has been having difficult time to cope with the stress. The patient has been very paranoid. The patient is worrying about people doing things behind her back. ASSESSMENT: The patient is still very paranoid and having difficult time to cope with the stress. PLAN: To continue the patient with the supportive therapy, encouraged the patient to verbalize the concerns rather than to act out. JOB# [id number]
[2019-09-06] MEDS: Atorvastatin Calcium 10 MG TAB PO SCH (20:50)
[2019-09-06] MEDS: Fenofibrate, Micronized 134 mg Cap PO SCH (20:51)
--- NOTE | 2019-09-06 22:43 | Progress Notes ---
DATE: 09/06/2019 ID: 83-year-old female. SUBJECTIVE: The patient seen and examined. The patient is sitting in the chair. The patient currently denies any chest pain, shortness of breath, palpitation, dizziness, nausea, vomiting, diarrhea. PHYSICAL EXAMINATION: VITAL SIGNS: Patient's blood pressure reported 186/72, yesterday was 153/74. HEENT: Remarkable, legally blindness noted. NECK: Supple, no JVD. HEART: Regular. CHEST AND LUNGS: Equal in expansion, no expiratory wheezing. ABDOMEN: Soft. Bowel sounds present. No palpable mass. EXTREMITIES: No edema. CLINICAL IMPRESSION: 1. Hypertension. 2. Hyperlipidemia. 3. Diabetes mellitus. 4. Degenerative joint disease. 5. Psychotic disorder. 6. Dementia. 7. Fall risk. 8. Debility. PLAN: Continue aspirin for CVA prophylaxis, Lipitor and fenofibrate for hyperlipidemia. Continue sliding scale insulin with metformin for diabetes. Continue antihypertensive medicine with lisinopril along with Procardia and Lopressor. Provide fall precautions, general nursing care and nutritional support. Psych medication and management deferred to psychiatrist. We will continue to follow this patient during the stay in the hospital. JOB# [id number]
[2019-09-07] MEDS: INSULIN LISPRO SLIDING SCALE 100 UNITS/ML UNIT SUBQ SCH ×4 (06:43→20:23)
[2019-09-07] MEDS: NIFEdipine 30 mg ER Tab PO SCH (08:48)
[2019-09-07] MEDS: Multivitamin Tab PO SCH (08:48)
[2019-09-07] MEDS: Potassium Chloride 10 mEq ER Tab PO SCH (08:48)
[2019-09-07] MEDS: Aspirin 81mg Chewable Tab PO SCH (08:49)
--- NOTE | 2019-09-07 12:49 | Progress Notes ---
DATE: 09/07/2019 PSYCHIATRIC PROGRESS NOTE SUBJECTIVE: Staff was spoken to. The patient is interviewed. Mood is noted to be anxious and irritable. Affect is constricted. Insight and judgment at this time are noted to be still impaired. Impulse control is noted to be limited. The patient, however, has been talking about people getting into the bathroom and how they are not caring for her. She states that she does not like the food over here and she wants to go back. The patient is stating that she is going to be dealing with the facility. The patient has no insight into her illness. ASSESSMENT: The patient is still paranoid. PLAN: To continue the patient with the supportive therapy and encouraged the patient to verbalize the concerns rather than to act out. JOB# [id number]
[2019-09-07] MEDS: Fenofibrate, Micronized 134 mg Cap PO SCH (20:21)
[2019-09-07] MEDS: Atorvastatin Calcium 10 MG TAB PO SCH (20:21)
[2019-09-08] MEDS: INSULIN LISPRO SLIDING SCALE 100 UNITS/ML UNIT SUBQ SCH ×4 (06:41→21:45)
[2019-09-08] MEDS: Aspirin 81mg Chewable Tab PO SCH (08:31)
[2019-09-08] MEDS: Multivitamin Tab PO SCH (08:32)
[2019-09-08] MEDS: NIFEdipine 30 mg ER Tab PO SCH (08:32)
[2019-09-08] MEDS: Potassium Chloride 10 mEq ER Tab PO SCH (08:33)
--- NOTE | 2019-09-08 13:02 | Progress Notes ---
DATE: PATIENT'S IDENTIFICATION: An 83-year-old female. SUBJECTIVE: The patient seen and examined. The patient is lying in the bed. The patient has no new complaint. Blood pressure is still a little noted to be elevated in 160s range. PHYSICAL EXAMINATION: VITAL SIGNS: Temperature 98, pulse is 64, respiratory rate 18, blood pressure 160/63. HEENT: Remarkable for legally blindness. NECK: Supple, no JVD. HEART: Regular. CHEST AND LUNGS: Equal in expansion, no expiratory wheezing. ABDOMEN: Soft. Bowel sounds present. No palpable mass. EXTREMITIES: No edema. CLINICAL IMPRESSION: 1. Hypertension. 2. Diabetes mellitus. 3. Hyperlipidemia. 4. Degenerative joint disease. 5. Psychotic disorder. 6. Dementia. 7. Fall risk. PLAN: 1. Continue to provide antihypertensive medicines. 2. Statin and fenofibrate. 3. Monitor blood sugar and blood pressure. 4. Psych medication. 5. General nursing care. 6. Symptom management. 7. Medication management. 8. Follow lab. 9. We will continue to follow this patient during the stay in the hospital. JOB# [id number]
[2019-09-08] MEDS: Fenofibrate, Micronized 134 mg Cap PO SCH (21:02)
[2019-09-08] MEDS: Atorvastatin Calcium 10 MG TAB PO SCH (21:04)
--- NOTE | 2019-09-09 02:13 | Progress Notes ---
DATE: 09/08/2019 PSYCHIATRIC PROGRESS NOTE SUBJECTIVE: Staff was spoken to. The patient is interviewed. Mood is noted to be irritable. Affect is constricted. The patient is stating that she does not like this place and she wants to go back to the same place that where she came from. The patient is stating that she has been having problem with the nurses over there and she has been accusing the staff, flirting with the boys and has been having difficult time to deal with it. At this time, the patient is having the same problem in here and the patient is paranoid. The patient is not able to contract for safety yet. ASSESSMENT: The patient is still paranoid. Sleep and appetite are noted to be improving. PLAN: To encouraged the patient to verbalize the concerns rather than to act out. The patient is currently on 25 mg of the Seroquel. Plan to continue that one and then followup. JOB# [id number]
[2019-09-09] MEDS: INSULIN LISPRO SLIDING SCALE 100 UNITS/ML UNIT SUBQ SCH ×3 (07:02→17:11)
[2019-09-09] MEDS: Multivitamin Tab PO SCH (09:47)
[2019-09-09] MEDS: Aspirin 81mg Chewable Tab PO SCH (09:48)
[2019-09-09] MEDS: Potassium Chloride 10 mEq ER Tab PO SCH (09:48)
--- NOTE | 2019-09-09 12:46 | Progress Notes ---
DATE: 09/09/2019 SUBJECTIVE: Staff was spoken to. The patient is interviewed. Mood is noted to be anxious. Insight and judgment are noted to be improving. Impulse control is noted to be fair. The patient has paranoia, but denies any command hallucinations. The patient has been able to tolerate the medication. The patient is currently on of the Seroquel. We was very careful to not to overmedicate the patient because the patient is legally blind. The patient, however, has been denying any command hallucinations. No side effects to the medications are noted. ASSESSMENT: The patient is stabilizing. PLAN: To discharge the patient for followup. JOB# [id number]
--- NOTE | 2019-09-09 15:57 | Progress Notes ---
DATE: 09/09/2019 PATIENT IDENTIFICATION: An 83-year-old female. SUBJECTIVE: The patient was seen and examined. The patient is lying in the bed. The patient has no new complaint. Blood pressure seems coming down, today is 156/78. The patient is ambulatory. The patient is legally blind. The patient has a fair appetite. PHYSICAL EXAMINATION: VITAL SIGNS: Temperature 98.3, pulse is 68, respiratory rate 18, blood pressure 156/78. HEENT: No facial asymmetry. NECK: Supple, no JVD. HEART: Regular. CHEST AND LUNGS: Equal in expansion, no expiratory wheezing. ABDOMEN: Soft. Bowel sounds present. No palpable mass. No hepatosplenomegaly. EXTREMITIES: No edema, no cyanosis. Peripheral +1. MEDICATIONS: Admission record is reviewed. CLINICAL IMPRESSION: 1. Diabetes mellitus, on metformin. 2. Hypertension, on multiple antihypertensive medicines. 3. Hyperlipidemia. 4. Degenerative joint disease. 5. Psychotic disorder. 6. Dementia. PLAN: 1. Monitor blood pressure. 2. Oral hypoglycemic agent. 3. Statin. 4. Fall precaution. 5. Fenofibrate. 6. General nursing care. 7. Continue current treatment plan as prescribed. 8. Follow lab. 9. Care plan reviewed and discussed with staff. JOB# [id number]
[2019-09-09] MEDS: NIFEdipine 30 mg ER Tab PO SCH (17:07)
--- NOTE | 2019-09-10 11:42 | Discharge Summary ---
DATE OF DISCHARGE: 09/09/2019 IDENTIFYING DATA: The patient is an 83-year-old woman, resident of [facility]. Information obtained directly interviewing the patient as well as reviewing the admission papers. JUSTIFICATION OF HOSPITALIZATION: The patient is admitted on a voluntary basis in view of her acute psychosis. CHIEF COMPLAINT: "They are doing things behind my back, they are not caring for me." DIAGNOSES AT THE TIME OF ADMISSION: AXIS I: Dementia and behavioral change secondary to it. AXIS IB: Dementia and delusional symptoms associated with it. AXIS II: None. AXIS III: As per Dr. Navarro. HISTORY OF PRESENT ILLNESS: Please refer the 09/01/2019, the dictation done by me. HOSPITAL COURSE AND RESPONSE TO TREATMENT: The patient has been closely monitored on the unit. Provided with supportive psychotherapy. The patient has been placed on the Seroquel that was gradually increased to 25 mg. The patient has been closely monitored. Encouraged to verbalize the concerns rather than to act out. The patient started to do fairly well and the patient was finally discharged to the facility for followup on outpatient basis. No major side effects to the medications are noted. DIAGNOSES AT THE TIME OF DISCHARGE: AXIS I: Dementia and delusional symptoms associated with it. AXIS II: None. AXIS III: As per Dr. Navarro. AFTERCARE PLAN: The patient is discharged to the facility for followup on outpatient basis. PROGNOSIS: At the time of discharge noted to be fair with the treatment. JOB# [id number]
== END 2019-09-09 16:30 | DRG 884 ==
LOC: GERO 09-01
PROVIDERS: ADMIT Psychiatry & Neurology Psychiatry; ATTEND Psychiatry & Neurology Psychiatry
DX: F03.91 Unspecified dementia, unspecified severity, with behavioral disturbance (principal); E11.9 Type 2 diabetes mellitus without complications; I10 Essential (primary) hypertension; E78.5 Hyperlipidemia, unspecified; F29 Unspecified psychosis not due to a substance or known physiological condition; F22 Delusional disorders; R53.81 Other malaise; M19.90 Unspecified osteoarthritis, unspecified site; H54.8 Legal blindness, as defined in USA; Z85.038 Personal history of other malignant neoplasm of large intestine; Z85.3 Personal history of malignant neoplasm of breast; Z88.0 Allergy status to penicillin
CPT/HCPCS: 83036-90; Z7610